=== PATIENT | male | born 1990 | race Caucasian/White ===

== ENCOUNTER 2020-02-06 17:53 | Emergency (ER) | payer OTHER, SELFPAY ==
[2020-02-06 18:05] VITALS: BP 131/87; PULSE 86; RESP 18; TEMP 36.7; O2SAT 97; BMI 29.5
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
== END 2020-02-06 19:08 | disposition home or self-care (01) ==
PROVIDERS: Emergency Provider Emergency Medicine; PCP Family Medicine
DX: F41.9 Anxiety disorder, unspecified (principal); F31.9 Bipolar disorder, unspecified
CPT/HCPCS: 99283

== ENCOUNTER 2021-09-02 17:35 | Emergency (ER) | payer OTHER, SELFPAY ==
[2021-09-02 18:29] VITALS: BP 106/77; PULSE 88; RESP 17; TEMP 37.8; O2SAT 98; BMI 25.1
[2021-09-02 19:07] VITALS: BP 114/72; PULSE 105; RESP 20; O2SAT 98
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
[2021-09-02 19:09] LABS: Glucose, Whole Blood 132 mg/dL (60-115)
[2021-09-02] MEDS: Ondansetron ODT 4 MG TAB.RAPDIS TRANSLINGU (19:15)
[2021-09-02 19:27] LABS: MANUAL DIFF FLAG NO
[2021-09-02 19:28] LABS: Basophils Percent Auto 0.1 % (0-2); Hematocrit 41.5 % (42.0-52.0); Hemoglobin 14.8 g/dl (14.0-18.0); Imm Gran Abs Auto 0.08 X10*3/uL (0.00-0.03); Imm Gran Pct Auto 0.5 % (0.0-0.4); Lymphocytes Percent Auto 6.2 % (20-40); Mean Corpuscular HGB Conc 35.7 g/dl (31.0-36.0); Mean Corpuscular Hemoglobin 30.9 pg (27.0-33.0); Mean Corpuscular Volume 86.6 fL (80.0-98.0); Mean Platelet Volume 10.4 fL (9.4-12.4); Monocytes Absolute Auto 1.1 X10*3/uL (0.1-1.2); Monocytes Percent Auto 6.8 % (2-11); Neutrophils Absolute Auto 13.3 x10*3/uL (2.0-8.3); Neutrophils Percent Auto 86.4 % (45-73); Platelet Count 240 X10*3/uL (160-400); Red Blood Count 4.79 X10*6/uL (4.60-5.80); Red Cell Distribution Width 13.6 % (11.0-16.0); White Blood Count 15.4 X10*3/uL (4.8-10.8)
[2021-09-02 19:48] LABS: Alanine Aminotransferase 14 U/L (0-40); Albumin Level 4.7 g/dL (3.5-5.0); Alkaline Phosphatase 78 U/L (39-117); Anion Gap 16 (12-20); Aspartate Amino Transferase 14 U/L (5-37); Bilirubin Total 0.6 mg/dL (0.0-1.0); Blood Urea Nitrogen 10 mg/dL (9-16); Calcium 9.1 mg/dL (8.4-10.2); Carbon Dioxide 24 mmol/L (22-29); Chloride 103 mmol/L (96-108); Creatinine Clr Calc Pharmacy 101.8; Estimated Glomerular Filt Rate > 60; Glucose Random 138 mg/dL (60-115); Sodium 139 mmol/L (135-145); Total Protein 8.2 g/dL (6.5-8.0)
--- NOTE | 2021-09-02 21:32 | ED.DENTAL ---
HPI - Dental/Oral General Chief complaint: Dental/Oral Stated complaint: tooth pain/R side of face swollen Time Seen by Provider: 09/02/21 21:23 Source: patient Mode of arrival: ambulatory Limitations: no limitations History of Present Illness HPI Narrative: 30-year-old male came in for evaluation of dental pain and gum swelling with facial swelling and tenderness symptoms been going for the past week patient was supposed to see his dentist today but apartment was postponed till tomorrow. Teeth map: 1. Dental decay 2. Gum swelling Related Data Previous Rx's Medication Instructions Recorded amoxicillin 500 mg tablet 500 mg PO Q8H #30 tabs 09/02/21 Allergies Allergy/AdvReac Type Severity Reaction Status Date / Time No Known Allergies Allergy Verified 09/02/21 18:32 Review of Systems Review of Systems: All other systems are reviewed and are negative Constitutional: Reports as per HPI and Reports no additional constitutional complaints Eyes: Reports as per HPI and Reports no additional eye complaints Reports system reviewed and no additional complaints, except as documented Cardiovascular: Reports as per HPI and Reports no additional cardiovascular complaints Respiratory: Reports as per HPI and Reports no additional respiratory complaints Gastrointestinal: Reports as per HPI and Reports no additional gastrointestinal complaints Genitourinary: Reports no additional female genitourinary complaints Musculoskeletal: Reports no additional musculoskeletal complaints Skin/Breast: Reports system reviewed and no additional complaints, except as docu Psychiatric: Reports no additional psychiatric complaints Endocrine: Reports no additional endocrine complaints Hematologic/Lymphatic: Reports no additional hematologic/lymphatic complaints Allergic/Immunologic: Reports no additional allergic/immunologic complaints Reports system reviewed and no additional complaints, except as documented and Reports Abnormal speech present [facility] Social History Social History Advance Directives: No Advance Directives Information Provided: No Physical Exam Vital Signs: Vital Signs: Last Vital Signs Temp 100.1 F 09/02/21 18:29 Pulse 105 H 09/02/21 19:07 Resp 20 09/02/21 19:07 BP 114/72 09/02/21 19:07 Pulse Ox 98 09/02/21 19:07 O2 Del Method 09/02/21 19:07 BMI result Body Mass Index 25.1 Vital signs have been reviewed as appeared to be correct. Blood pressure normal. Heart rate normal. Respiration rate normal. Temperature normal. Oxygen saturation normal. Appearance: Alert. Oriented X3. No acute distress. Head: Normal external exam. Normocephalic. Atraumatic. No Lerner signs noted. No raccoon eyes noted Eyes: PERRLA. EOMI. Conjunctiva and sclera normal. Eyelids normal. Facial/dental: Right facial swelling, widespread dental decay drainable gum abscess next to tooth number 30 and 31. ENT: TM's Normal. Pharynx normal. Uvula midline. Moist mucous membranes. No trismus noted. No drooling noted. No muffled voice noted. Neck: Normal inspection. Neck supple. FROM. No adenopathy. Thyroid Normal. No meningeal signs. No neck mass noted. CVS: Normal heart rate and rhythm. Heart sound normal. No murmurs noted. Pulses normal throughout. Respiratory: No respiratory distress. Painless inspiration. Breath sounds normal. No wheezes/rales/rhonchi noted. Chest nontender. No accessory muscle usage noted or decreased air movement noted. Abdomen: Soft and nontender. Bowel sounds normal in all 4 quadrants. No distention noted. No organomegaly noted. No visible injury noted. Back: No CVA tenderness. Full range of motion noted. Skin: Skin warm and dry. Normal skin color. Normal skin turgor. No rashes/lesions/lacerations noted. Extremities: No lower extremity edema. Extremities exhibit normal range of motion. Extremities nontender. Neuro: Oriented X 3. Cranial nerve exam: II-XII are grossly intact No motor deficit. No sensory deficit. Reflexes normal. Course Course Course Narrative: 30-year-old male with right facial swelling and dental pain with small dental abscess that was I and D in the emergency department patient has an appointment with his dentist tomorrow, patient was given anti-inflammatories/penicillin/pain medication and prescription for amoxicillin and follow up with his dentist tomorrow. MDM - Dental/Oral Lab Data Result diagrams: 09/02/21 19:15 09/02/21 19:15 Labs: Lab Results 09/02/21 09/02/21 09/02/21 Range/Units 19:05 19:15 19:15 WBC 15.4 H (4.8-10.8) X10*3/uL RBC 4.79 (4.60-5.80) X10*6/uL Hgb 14.8 (14.0-18.0) g/dl Hct 41.5 L (42.0-52.0) % MCV 86.6 (80.0-98.0) fL MCH 30.9 (27.0-33.0) pg MCHC 35.7 (31.0-36.0) g/dl RDW 13.6 (11.0-16.0) % Plt Count 240 (160-400) X10*3/uL MPV 10.4 (9.4-12.4) fL Immature Gran % (Auto) 0.5 H (0.0-0.4) % Neut % (Auto) 86.4 H (45-73) % Lymph % (Auto) 6.2 L (20-40) % Pitt % (Auto) 6.8 (2-11) % Eos % (Auto) 0.0 (0-4) % Baso % (Auto) 0.1 (0-2) % Lymph # (Auto) 1.0 L (1.2-4.9) X10*3/uL Pitt # (Auto) 1.1 (0.1-1.2) X10*3/uL Eos # (Auto) 0.0 (0.0-0.4) X10*3/uL Baso # (Auto) 0.0 (0.0-0.2) X10*3/uL Abs Immat Gran (auto) 0.08 H (0.00-0.03) X10*3/uL Absolute Neuts (auto) 13.3 H (2.0-8.3) x10*3/uL Absolute Nucleated RBC 0.000 (0.0-0.012) X10*3/uL Nucleated RBC % (auto) 0.0 (0.0-0.2) /100WBC Sodium 139 (135-145) mmol/L Potassium 4.0 (3.3-5.1) mmol/L Chloride 103 (96-108) mmol/L Carbon Dioxide 24 (22-29) mmol/L Anion Gap 16 (12-20) BUN 10 (9-16) mg/dL Creatinine 1.08 (0.5-1.4) mg/dL Estim Creat Clear Calc 101.8 Estimated GFR > 60 POC Glucose 132 H (60-115) mg/dL Random Glucose 138 H (60-115) mg/dL Calcium 9.1 (8.4-10.2) mg/dL Total Bilirubin 0.6 (0.0-1.0) mg/dL AST 14 (5-37) U/L ALT 14 (0-40) U/L Alkaline Phosphatase 78 (39-117) U/L Total Protein 8.2 H (6.5-8.0) g/dL Albumin 4.7 (3.5-5.0) g/dL Discharge Plan Discharge Clinical Impression: Toothache, Dental caries, Gingival abscess Patient Disposition: Home, Self-Care Instructions: Gingivitis (ED) Additional Instructions: See your dentist as scheduled tomorrow. Prescriptions: New amoxicillin 500 mg tablet 500 mg PO Q8H Qty: 30 0RF
[2021-09-02] MEDS: Ibuprofen 800 MG TABLET PO (21:45)
[2021-09-02] MEDS: oxyCODONE HCl Immed Release 5 MG TABLET PO (21:46)
[2021-09-02] MEDS: Amoxicillin 500 MG CAPSULE PO (21:47)
== END 2021-09-02 22:06 | disposition home or self-care (01) ==
PROVIDERS: Emergency Provider Emergency Medicine
DX: K08.89 Other specified disorders of teeth and supporting structures (principal); K02.9 Dental caries, unspecified; K05.3 Chronic periodontitis
CPT/HCPCS: 36415; 80053; 82947; 85025; 99283

== ENCOUNTER 2022-03-10 13:15 | Emergency (ER) | payer OTHER, SELFPAY ==
--- NOTE | ~2022-03-10 | CT_ITS ---
EXAMINATION: CT SOFT TISSUE NECK WITH CONTRAST CLINICAL INFORMATION: Right facial swelling and pain. COMPARISON: None TECHNIQUE: Following the administration of 100 mL of Omnipaque 300 intravenous contrast, helical imaging was performed in the axial plane with generation of coronal and sagittal reformatted images. This CT examination was performed using dose optimization techniques as appropriate, variously including the following: *Automated exposure control *Adjustment of mA and/or kV according to patient size (this includes techniques or standardized protocols for targeted exams where dose is matched to indication/reason for exam; i.e. extremities or head) *Use of iterative reconstruction technique DLP: 585 mGy-cm FINDINGS: There is extensive periodontal and periapical disease within the maxillary and mandibular dentition. There is a large area of right mandibular alveolar lucency which involves the roots of the right lateral incisor, first and second premolars, and both molars. The lucency involves the buccal cortex in the region of the molars and the lingual cortex and buccal cortex in the more anterior dentition. These features are in keeping with mandibular osteomyelitis with pathologic fracture. There is significant soft tissue thickening and enhancement within the right gingivobuccal and premandibular tissues compatible with phlegmon. A rim-enhancing abscess is seen within the right submental region best seen on series 4 image 48/102 measuring up to 4.1 cm. There is no definite inflammation along the floor of mouth. Inflammatory changes are seen extending into the right submandibular triangle with interfascial fluid and fascial thickening. Enlarged lymph nodes are seen along the bilateral submandibular stations. Additional mildly enlarged lymph nodes are seen on the left at level 3, presumably reactive. The parotid and submandibular glands appear normal. The laryngeal contours appear normal. There is no retropharyngeal fluid collection. The thyroid gland appears normal. There is no consolidation within the upper lungs. The cervical spine is intact without destructive changes. No acute intracranial abnormality is seen. CT/CT soft tissue neck w IV con IMPRESSION: Large area of right mandibular alveolar lucency involving the roots of the right lateral incisor, first and second premolars, and both molars. The lucency involves the buccal cortex in the region of the right first and second premolars, and the lingual cortex and buccal cortex in the more anterior dentition. These features are in keeping with mandibular osteomyelitis with pathologic fracture. Extensive phlegmon is seen within the right gingivobuccal and premandibular tissues. A rim-enhancing abscess is seen within the right submental region measuring up to 4.1 cm. Enlarged lymph nodes are seen along the bilateral submandibular stations and left level 3.
--- NOTE | 2022-03-10 13:43 | ED.DENTAL ---
HPI - Dental/Oral General Stated complaint: dental issues Time Seen by Provider: 03/10/22 13:43 Source: patient Mode of arrival: ambulatory Limitations: no limitations History of Present Illness HPI Narrative: 31 yo male here seeking antibiotic for dental infection. Has plan for follow-up with oral surgeon. no difficulty breathing/swallowing difficulties MD Complaint: tooth pain Related Data Previous Rx's Medication Instructions Recorded amoxicillin 500 mg tablet 500 mg PO Q8H #30 tabs 09/02/21 Allergies Allergy/AdvReac Type Severity Reaction Status Date / Time No Known Allergies Allergy Verified 09/02/21 18:32 Review of Systems Review of Systems: Yes all other systems are reviewed and are negative Constitutional: Constitutional: Reports no additional constitutional complaints, Denies body ache(s), Denies chills, Denies fever(s), Denies headache(s) and Denies weakness Eyes: Eyes: Reports no additional eye complaints and Denies change in vision ENT: Reports system reviewed and no additional complaints, except as documented, Reports dental pain, Denies dizziness, Denies headache(s), Denies nasal congestion, Denies nasal discharge and Denies neck pain Cardiovascular: Cardiovascular: Reports no additional cardiovascular complaints, Denies chest pain, Denies leg edema and Denies dyspnea Respiratory: Respiratory: Reports no additional respiratory complaints, Denies cough and Denies dyspnea Gastrointestinal: Gastrointestinal: Reports no additional gastrointestinal complaints, Denies abdominal pain, Denies diarrhea, Denies nausea and Denies vomiting Genitourinary: Genitourinary: Denies urinary incontinence Musculoskeletal: Musculoskeletal: Reports no additional musculoskeletal complaints, Denies back pain, Denies arthralgias, Denies joint swelling, Denies neck pain, Denies numbness and Denies tingling Integumentary/Breasts: Skin/Breast: Reports system reviewed and no additional complaints, except as docu and Denies rash Neurologic: Reports system reviewed and no additional complaints, except as documented, Denies Abnormal speech present, Denies dizziness, Denies headache(s), Denies numbness, Denies tingling and Denies weakness PMFSH Past Medical History Attestation statement: The following information was validated with the patient. Source: old records reviewed and nursing notes reviewed Physical Exam Const: General: cooperative, healthy appearing, comfortable and no acute distress Orientation/consciousness: patient oriented x3 Limitations: no limitations HEENT: Head: Yes normal to inspection Ears: hearing grossly normal bilaterally General nose exam: Normal external nose present Face and sinus: Yes normal facial exam Mouth: Normal oral and palatal mucosa present Throat: Yes posterior oropharynx normal Eyes: General: appearance normal, both eyes and all related structures Pupils: Equal, round and reactive pupils present Neck: Neck: Yes normal visual inspection Chest: Chest palpation & inspection: normal inspection of the chest Resp: Effort & Inspection: normal respiratory effort Auscultation: clear to auscultation bilaterally Cardio: Rate: regular rate Rhythm: regular rhythm Peripheral pulses: Peripheral pulses 2+ throughout GI: Inspection: Yes normal to inspection Palpation (GI): Soft to palpation and nontender Auscultation: normal bowel sounds Back/Spine/Pelvis: Thoracic/Lumbar Spine: thoracic and lumbar spine normal to inspection Skin: General skin exam: no rashes or lesions noted Neuro: General: patient oriented x3, no focal motor deficits and normal sensation to monofilament Cranial nerves: Yes Equal, round and reactive pupils present Cognition (Neuro): normal cognition Speech: No Abnormal speech present Gait exam (Neuro): Normal gait present Motor exam (neuro): 5/5 motor strength present throughout Extrem: General: Yes normal to inspection Medical Decision Making Medical Decision Making MDM Narrative: 31 yo male here with dental infection. Differential Diagnosis Differential Diagnoses: The differential diagnosis associated with the presentation includes Discharge Plan Discharge Clinical Impression: Dental infection Patient Disposition: Home, Self-Care Instructions: Dental Abscess (ED) Prescriptions: No Action amoxicillin 500 mg tablet 500 mg PO Q8H Qty: 30 0RF
[2022-03-10 13:44] VITALS: BP 123/80; PULSE 90; RESP 18; TEMP 36.9; O2SAT 98; BMI 26.6
--- NOTE | 2022-03-10 13:48 | ED_ITS ---
HPI - General Adult General Chief complaint: Dental/Oral <Daisha Wagner NP - Last Filed: 03/10/22 13:49> Stated complaint: dental issues <Daisha Wagner NP - Last Filed: 03/10/22 13:49> Time Seen by Provider: 03/10/22 13:43 <Daisha Wagner NP - Last Filed: 03/10/22 13:49> History of Present Illness HPI narrative: Patient complains of several weeks of worsening dental infection with pain and swelling now under the mandible, he denies any fever chills, he does have some pain he has no difficulty speaking or swallowing denies any drooling no trouble breathing no trouble swallowing, no chest pain no shortness of breath no skin rash <REJI Ratliff - Last Filed: 03/10/22 18:57> Related Data Home medications: Previous Rx's Medication Instructions Recorded amoxicillin 500 mg tablet 500 mg PO Q8H #30 tabs 09/02/21 clindamycin HCl 300 mg capsule 300 mg PO QID 10 days #40 caps 03/10/22 clindamycin HCl 300 mg capsule 300 mg PO QID 10 days #40 caps 03/10/22 (Cleocin HCl) ibuprofen 600 mg tablet 600 mg PO Q6H PRN pain #20 tabs 03/10/22 ibuprofen 600 mg tablet 600 mg PO Q6H PRN pain #20 tabs 03/10/22 oxycodone 5 mg tablet 5 mg PO Q6H PRN pain #7 tabs 03/10/22 oxycodone 5 mg tablet 5 mg PO Q6H PRN pain #7 tabs 03/10/22 <Daisha Wagner NP - Last Filed: 03/10/22 13:49> Allergies/adverse reactions: Allergies Allergy/AdvReac Type Severity Reaction Status Date / Time No Known Allergies Allergy Verified 09/02/21 18:32 <Daisha Wagner NP - Last Filed: 03/10/22 13:49> [facility] Past Medical History [facility] Narrative: Patient has a history of a mood disorder <REJI Ratliff - Last Filed: 03/10/22 18:57> Social History Social History: Social History Advance Directives: No <Daisha Wagner NP - Last Filed: 03/10/22 13:49> Physical Exam ED Vital Signs: Vital Signs - 24 hr 03/10/22 13:44 03/10/22 17:57 Temperature 98.5 F 98.3 F Pulse Rate 90 68 Respiratory Rate 18 16 Blood Pressure 123/80 111/63 Pulse Oximetry 98 99 Oxygen Delivery Method Room Air Room Air BMI result Body Mass Index 26.6 <Daisha Wagner NP - Last Filed: 03/10/22 13:49> Vital Signs - 24 hr 03/10/22 13:44 03/10/22 17:57 Temperature 98.5 F 98.3 F Pulse Rate 90 68 Respiratory Rate 18 16 Blood Pressure 123/80 111/63 Pulse Oximetry 98 99 Oxygen Delivery Method Room Air Room Air BMI result Body Mass Index 26.6 <REJI Ratliff - Last Filed: 03/10/22 18:57> General appearance is no acute distress, speaking full sentences breathing easily no evidence of any respiratory distress The oral exam there is poor dentition, there is tenderness over a right lower molar that is very decayed there was no obvious fluctuant abscess on the gum line in the mouth, there is no trismus there is no drooling, there is no swelling under the tongue, there is no elevation of the tongue, there is no tenderness on the floor of the mouth, voice is normal The facial exam in the submandibular area there is an area of redness induration and tenderness, but no obvious fluctuant superficial abscess The neck exam there is no stridor the neck is supple, swelling is now limited to the submandibular area The pharynx is clear without redness swelling or exudate Respiratory no distress Chest clear to auscultation bilateral Extremities full range of motion x4 <REJI Ratliff - Last Filed: 03/10/22 18:57> Course Course Course Narrative: This is a rapid medical exam. Defer additional HPI, ROS, PE to primary provider. 31 yo male with history of mood disorder here with right lower dental pain/infection. Patient with some swelling, concern for abscess. Tolerating secretions. Will likely need advanced imaging. Will obtain labs. VSS <Daisha Wagner NP - Last Filed: 03/10/22 13:49> This is a rapid medical exam. Defer additional HPI, ROS, PE to primary provider. 31 yo male with history of mood disorder here with right lower dental pain/infection. Patient with some swelling, concern for abscess. Tolerating se cretions. Will likely need advanced imaging. Will obtain labs. 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, and extensive phlegmon is seen in right gingivalbuccal and pre mandibular tissue A rim enhancing abscess is seen within right subsegmental region measuring 4.1 cm, large lymph nodes are seen This case was discussed with attending physician David who agreed this patient should be transferred to a place with ENT or maxillofacial coverage for possible surgical treatment and be started on IV antibiotics When I explained to the patient that we need to transfer him and start IV antibiotics he became very agitated saying his mother in this hospital he would never be admitted to this hospital and he was adamant about not staying For of brief period of time he was yelling and angry but then he calmed down and did understand when I explained the serious of the situation, but he still refus ed admission or transfer He agreed to start oral antibiotics and says that he would think of returning to the hospital tomorrow It was made very clear that he could return to [place] or go wherever he wants and understood that he probably needs IV antibiotics and possibly surgery from a specialist and he also understands that if the abscess and infection grows it could impede his airway make breathing, sepsis, and cause disability or He did leave the hospital but he was alert and oriented he understood the severity of his infection and he was not suicidal and understood risks of leavi ng and benefits of admission but he refused hospital treatment <REJI Ratliff - Last Filed: 03/10/22 18:57> Medications Administered Discontinued Medications Generic Name Dose Route Start Last Admin Trade Name Freq PRN Reason Stop Dose Admin Clindamycin Phosphate 600 mg in 50 mls @ 100 mls/hr 03/10/22 14:29 03/10/22 16:01 Cleocin IV 03/10/22 14:58 Infused ONCE ONE Infusion Iohexol 100 ml 03/10/22 15:53 03/10/22 15:53 Iohexol 350 Mg/Ml 100 Ml Infus..Btl IV 03/10/22 15:54 60 ml ONCE ONE Administration Ketorolac Tromethamine 15 mg 03/10/22 14:29 03/10/22 14:47 Ketorolac Tromethamine 15 Mg/Ml Vial IVPUSH 03/10/22 14:30 15 mg ONCE ONE Administration <Daisha Wagner NP - Last Filed: 03/10/22 13:49> Medications Administered Discontinued Medications Generic Name Dose Route Start Last Admin Trade Name Liliana PRN Reason Stop Dose Admin Clindamycin Phosphate 600 mg in 50 mls @ 100 mls/hr 03/10/22 14:29 03/10/22 16:01 Cleocin IV 03/10/22 14:58 Infused ONCE ONE Infusion Iohexol 100 ml 03/10/22 15:53 03/10/22 15:53 Iohexol 350 Mg/Ml 100 Ml Infus..Btl IV 03/10/22 15:54 60 ml ONCE ONE Administration Ketorolac Tromethamine 15 mg 03/10/22 14:29 03/10/22 14:47 Ketorolac Tromethamine 15 Mg/Ml Vial IVPUSH 03/10/22 14:30 15 mg ONCE ONE Administration <REJI Ratliff - Last Filed: 03/10/22 18:57> Medical Decision Making Lab Data Result Diagrams: 03/10/22 14:41 03/10/22 14:41 <Daisha Wagner NP - Last Filed: 03/10/22 13:49> Labs: Lab Results 03/10/22 03/10/22 03/10/22 Range/Units 14:41 14:41 14:41 WBC 9.8 (4.8-10.8) X10*3/uL RBC 4.62 (4.60-5.80) X10*6/uL Hgb 13.9 L (14.0-18.0) g/dl Hct 40.5 L (42.0-52.0) % MCV 87.7 (80.0-98.0) fL MCH 30.1 (27.0-33.0) pg MCHC 34.3 (31.0-36.0) g/dl RDW 13.2 (11.0-16.0) % Plt Count 308 D (160-400) X10*3/uL MPV 9.2 L (9.4-12.4) fL Immature Gran % (Auto) 0.3 (0.0-0.4) % Neut % (Auto) 74.9 H (45-73) % Lymph % (Auto) 15.0 L (20-40) % [place] % (Auto) 8.3 (2-11) % Eos % (Auto) 1.1 (0-4) % Baso % (Auto) 0.4 (0-2) % Lymph # (Auto) 1.5 (1.2-4.9) X10*3/uL [place] # (Auto) 0.8 (0.1-1.2) X10*3/uL Eos # (Auto) 0.1 (0.0-0.4) X10*3/uL Baso # (Auto) 0.0 (0.0-0.2) X10*3/uL Abs Immat Gran (auto) 0.03 (0.00-0.03) X10*3/uL Absolute Neuts (auto) 7.3 (2.0-8.3) x10*3/uL Absolute Nucleated RBC 0.000 (0.0-0.012) X10*3/uL Nucleated RBC % (auto) 0.0 (0.0-0.2) /100WBC Sodium 138 (135-145) mmol/L Potassium 4.7 (3.3-5.1) mmol/L Chloride 101 (96-108) mmol/L Carbon Dioxide 28 (22-29) mmol/L Anion Gap 14 (12-20) BUN 14 (9-16) mg/dL Creatinine 0.98 (0.5-1.4) mg/dL Estim Creat Clear Calc 111.2 Estimated GFR > 60 Random Glucose 85 (60-115) mg/dL Lactic Acid 0.7 (0.5-2.0) mmol/L Calcium 9.8 D (8.4-10.2) mg/dL <Daisha Wagner, DATASTAGE DEVELOPER - Last Filed: 03/10/22 13:49> Lab Results 03/10/22 03/10/22 03/10/22 Range/Units 14:41 14:41 14:41 WBC 9.8 (4.8-10.8) X10*3/uL RBC 4.62 (4.60-5.80) X10*6/uL Hgb 13.9 L (14.0-18.0) g/dl Hct 40.5 L (42.0-52.0) % MCV 87.7 (80.0-98.0) fL MCH 30.1 (27.0-33.0) pg MCHC 34.3 (31.0-36.0) g/dl RDW 13.2 (11.0-16.0) % Plt Count 308 D (160-400) X10*3/uL MPV 9.2 L (9.4-12.4) fL Immature Gran % (Auto) 0.3 (0.0-0.4) % Neut % (Auto) 74.9 H (45-73) % Lymph % (Auto) 15.0 L (20-40) % [place] % (Auto) 8.3 (2-11) % Eos % (Auto) 1.1 (0-4) % Baso % (Auto) 0.4 (0-2) % Lymph # (Auto) 1.5 (1.2-4.9) X10*3/uL [place] # (Auto) 0.8 (0.1-1.2) X10*3/uL Eos # (Auto) 0.1 (0.0-0.4) X10*3/uL Baso # (Auto) 0.0 (0.0-0.2) X10*3/uL Abs Immat Gran (auto) 0.03 (0.00-0.03) X10*3/uL Absolute Neuts (auto) 7.3 (2.0-8.3) x10*3/uL Absolute Nucleated RBC 0.000 (0.0-0.012) X10*3/uL Nucleated RBC % (auto) 0.0 (0.0-0.2) /100WBC Sodium 138 (135-145) mmol/L Potassium 4.7 (3.3-5.1) mmol/L Chloride 101 (96-108) mmol/L Carbon Dioxide 28 (22-29) mmol/L Anion Gap 14 (12-20) BUN 14 (9-16) mg/dL Creatinine 0.98 (0.5-1.4) mg/dL Estim Creat Clear Calc 111.2 Estimated GFR > 60 Random Glucose 85 (60-115) mg/dL Lactic Acid 0.7 (0.5-2.0) mmol/L Calcium 9.8 D (8.4-10.2) mg/dL <REJI Ratliff - Last Filed: 03/10/22 18:57> Discharge Plan Discharge Clinical Impression: Dental infection, Submandibular abscess, Osteomyelitis <Daisha Wagner NP - Last Filed: 03/10/22 13:49> Patient Disposition: Left Against Medical Advice <Daisha Wagner NP - Last Filed: 03/10/22 13:49> Instructions: Dental Abscess (ED) <Daisha Wagner NP - Last Filed: 03/10/22 13:49> Additional Instructions: You have a dangerous potentially life-threatening infection in your neck which if it progresses can make it difficult breathe and can make you deathly ill You did not want to stay in the hospital but the door is always open we want you to come back so that you could be transferred to a facility within maxillofacial surgeon and to get IV antibiotics to cure your infection I prescribed pills which are no where near is good as IV antibiotics and surgical evaluation Return any time for difficulty breathing fever spreading infection any worse condition or any concerns <Daisha Wagner NP - Last Filed: 03/10/22 13:49> Prescriptions: New clindamycin HCl 300 mg capsule 300 mg PO QID 10 Days Qty: 40 0RF oxycodone 5 mg tablet 5 mg PO Q6H PRN (Reason: pain) Qty: 7 0RF Rx Instructions: Partial Fill upon patient request. ibuprofen 600 mg tablet 600 mg PO Q6H PRN (Reason: pain) Qty: 20 0RF clindamycin HCl [Cleocin HCl] 300 mg capsule 300 mg PO QID 10 Days Qty: 40 0RF ibuprofen 600 mg tablet 600 mg PO Q6H PRN (Reason: pain) Qty: 20 0RF oxycodone 5 mg tablet 5 mg PO Q6H PRN (Reason: pain) Qty: 7 0RF Rx Instructions: Partial Fill upon patient request. No Action amoxicillin 500 mg tablet 500 mg PO Q8H Qty: 30 0RF <Daisha Wagner NP - Last Filed: 03/10/22 13:49> Stand Alone Forms: Against Medical Advice <Daisha Wagner NP - Last Filed: 03/10/22 13:49>
[2022-03-10 14:46] LABS: MANUAL DIFF FLAG NO
[2022-03-10] MEDS: Clindamycin Phosphate/D5W 600 MG/50 ML PIGGYBACK 100 MG IV (14:47)
[2022-03-10] MEDS: Ketorolac Tromethamine 15 MG/ML VIAL IVPUSH (14:47)
[2022-03-10 14:48] LABS: Basophils Percent Auto 0.4 % (0-2); Eosinophils Absolute Auto 0.1 X10*3/uL (0.0-0.4); Eosinophils Percent Auto 1.1 % (0-4); Hematocrit 40.5 % (42.0-52.0); Hemoglobin 13.9 g/dl (14.0-18.0); Imm Gran Abs Auto 0.03 X10*3/uL (0.00-0.03); Imm Gran Pct Auto 0.3 % (0.0-0.4); Lymphocytes Absolute Auto 1.5 X10*3/uL (1.2-4.9); Mean Corpuscular HGB Conc 34.3 g/dl (31.0-36.0); Mean Corpuscular Hemoglobin 30.1 pg (27.0-33.0); Mean Corpuscular Volume 87.7 fL (80.0-98.0); Mean Platelet Volume 9.2 fL (9.4-12.4); Monocytes Absolute Auto 0.8 X10*3/uL (0.1-1.2); Monocytes Percent Auto 8.3 % (2-11); Neutrophils Absolute Auto 7.3 x10*3/uL (2.0-8.3); Neutrophils Percent Auto 74.9 % (45-73); Platelet Count 308 X10*3/uL (160-400); Red Blood Count 4.62 X10*6/uL (4.60-5.80); Red Cell Distribution Width 13.2 % (11.0-16.0); White Blood Count 9.8 X10*3/uL (4.8-10.8)
[2022-03-10 15:00] LABS: Lactic Acid 0.7 mmol/L (0.5-2.0)
[2022-03-10 15:06] LABS: Anion Gap 14 (12-20); Blood Urea Nitrogen 14 mg/dL (9-16); Calcium 9.8 mg/dL (8.4-10.2); Carbon Dioxide 28 mmol/L (22-29); Chloride 101 mmol/L (96-108); Creatinine Clr Calc Pharmacy 111.2; Estimated Glomerular Filt Rate > 60; Glucose Random 85 mg/dL (60-115); Potassium 4.7 mmol/L (3.3-5.1); Sodium 138 mmol/L (135-145)
[2022-03-10] MEDS: iohexoL 350 MG/ML 100 ML INFUS..BTL IV (15:53)
[2022-03-10 17:57] VITALS: BP 111/63; PULSE 68; RESP 16; TEMP 36.8; O2SAT 99
--- NOTE | 2022-03-10 18:28 | PC.NURSE ---
overheard yelling while pt was talking with provider. pt was increasingly angry, unable to determine cause. pt stating Amanda been here all day I just want to get the fuck out of here my schizophrenia is getting bad. My mother in this hospital. At this time security was outside the room as a standby. pt stated get security the fuck out of here I'm paranoid as fuck. I'll take a gun and shoot these mother fuckers . Pt did not want to stay in the hospital for his infection. was d/c per his request. risks of not staying in the hospital were explained to the pt.
== END 2022-03-10 18:41 | disposition left against medical advice (07) ==
PROVIDERS: Nurse Practitioner Family; Emergency Provider Student in an Organized Health Care Education/Training Program
DX: R22.1 Localized swelling, mass and lump, neck (principal); M86.10 Other acute osteomyelitis, unspecified site; K12.2 Cellulitis and abscess of mouth; Z79.899 Other long term (current) drug therapy
CPT/HCPCS: 36415; 70491; 80048; 83605; 85025; 87040; 96365; 96375; 99284; J1885; Q9967

== ENCOUNTER 2022-11-25 23:03 | Emergency (ER) | payer OTHER, SELFPAY ==
--- NOTE | ~2022-11-25 | CT_ITS ---
EXAMINATION: NONCONTRAST HEAD CT NONCONTRAST CERVICAL SPINE CT INDICATION INFORMATION: Fall. Posterior scalp pain. COMPARISON: 09/08/2016 and 07/10/2018 TECHNIQUE: Separate noncontrast CT examinations of the head and cervical spine were performed. Coronal and sagittal images were created for each examination at the technologist workstation. This CT examination was performed using dose optimization techniques as appropriate, variously including the following: *Automated exposure control *Adjustment of mA and/or kV according to patient size (this includes techniques or standardized protocols for targeted exams where dose is matched to indication/reason for exam; i.e. extremities or head) *Use of iterative reconstruction technique DLP: 1320 mGy-cm FINDINGS: Head: There is no evidence of acute intracranial hemorrhage or territorial infarction. No abnormal mass effect or midline shift is seen. Meneses to white matter differentiation is well preserved. No extra-axial fluid collections are identified. No hydrocephalus. No significant volume loss. There is no abnormal attenuation within the brain parenchyma. No acute osseous or soft tissue abnormality. The mastoid air cells and visualized portions of the paranasal sinuses are well aerated. Cervical spine: There is anatomic alignment of the vertebral bodies and posterior elements. The atlantoaxial and atlantooccipital articulations are intact. Vertebral body heights and intervertebral disc spaces are maintained. No evidence of acute fracture. No prevertebral soft tissue swelling. Visualized portions of the lung apices are unremarkable. The thyroid gland is unremarkable. CT/CT head/brain wo IV con IMPRESSION: * No acute intracranial bleed or territorial infarction. * No acute fractures of the calvarium or cervical spine.
--- NOTE | ~2022-11-25 | CT_ITS ---
EXAMINATION: NONCONTRAST HEAD CT NONCONTRAST CERVICAL SPINE CT INDICATION INFORMATION: Fall. Posterior scalp pain. COMPARISON: 09/08/2016 and 07/10/2018 TECHNIQUE: Separate noncontrast CT examinations of the head and cervical spine were performed. Coronal and sagittal images were created for each examination at the technologist workstation. This CT examination was performed using dose optimization techniques as appropriate, variously including the following: *Automated exposure control *Adjustment of mA and/or kV according to patient size (this includes techniques or standardized protocols for targeted exams where dose is matched to indication/reason for exam; i.e. extremities or head) *Use of iterative reconstruction technique DLP: 1320 mGy-cm FINDINGS: Head: There is no evidence of acute intracranial hemorrhage or territorial infarction. No abnormal mass effect or midline shift is seen. Meneses to white matter differentiation is well preserved. No extra-axial fluid collections are identified. No hydrocephalus. No significant volume loss. There is no abnormal attenuation within the brain parenchyma. No acute osseous or soft tissue abnormality. The mastoid air cells and visualized portions of the paranasal sinuses are well aerated. Cervical spine: There is anatomic alignment of the vertebral bodies and posterior elements. The atlantoaxial and atlantooccipital articulations are intact. Vertebral body heights and intervertebral disc spaces are maintained. No evidence of acute fracture. No prevertebral soft tissue swelling. Visualized portions of the lung apices are unremarkable. The thyroid gland is unremarkable. CT/CT cervical spine wo IV con IMPRESSION: * No acute intracranial bleed or territorial infarction. * No acute fractures of the calvarium or cervical spine.
[2022-11-25 23:07] VITALS: BP 122/74; PULSE 77; O2SAT 98
[2022-11-25 23:19] VITALS: BP 105/61; PULSE 63; RESP 16; TEMP 36.9; O2SAT 97; BMI 28.0
--- NOTE | 2022-11-25 23:26 | PC.NURSE ---
Dr. Jones at bedside for primary eval. c-collar removed by
--- NOTE | 2022-11-25 23:28 | ED.FALL ---
HPI - Fall General Chief Complaint: Fall Stated Complaint: dizzy,nausea,headache Time Seen by Provider: 11/25/22 23:15 Source: patient Mode of arrival: EMS Limitations: no limitations History of Present Illness HPI Narrative: 31-year-old male who presents emergency department for evaluation of a syncopal episode. The patient states he has chronic neck and back pain as well as insomnia. He states that he took his gabapentin and duloxetine. He then drink orange juice and a whole bottle of vodka. He states that he was feeling hot knee got up to go to his bedroom, he then passed out. He states he fell backwards struck his head. He believes that he did lose consciousness. He states since the fall he has been feeling sick with nausea but no vomiting. He he states that he got hot, sweaty, got up to walk to his room and then passed out. Nursing notes state that the fall was witnessed By a friend. Patient got up, struck his head on the wall then fell to the floor. He had a 2nd loss of consciousness.He denied being ill prior to his syncopal episode. He denied fever, chills, cough, chest pain, shortness of breath, changes bowel movements, frequency, urgency or dysuria. He complained of a headache which is 10/10 and complained that he was having pain on the back of his head from the fall. Patient states he does not drink on a regular basis, he states that he does binge drink every 1-2 months. He denies being suicidal or homicidal he states he was drinking just to have a good time. Related Data Previous Rx's Medication Instructions Recorded amoxicillin 500 mg tablet 500 mg PO Q8H #30 tabs 09/02/21 clindamycin HCl 300 mg capsule 300 mg PO QID 10 days #40 caps 03/10/22 clindamycin HCl 300 mg capsule 300 mg PO QID 10 days #40 caps 03/10/22 (Cleocin HCl) ibuprofen 600 mg tablet 600 mg PO Q6H PRN pain #20 tabs 03/10/22 ibuprofen 600 mg tablet 600 mg PO Q6H PRN pain #20 tabs 03/10/22 oxycodone 5 mg tablet 5 mg PO Q6H PRN pain #7 tabs 03/10/22 oxycodone 5 mg tablet 5 mg PO Q6H PRN pain #7 tabs 03/10/22 Allergies Allergy/AdvReac Type Severity Reaction Status Date / Time No Known Allergies Allergy Verified 11/25/22 23:25 Review of Systems Review of Systems: Yes all other systems are reviewed and are negative [facility] Past Medical History [facility] Narrative: Past medical history: Insomnia, chronic pain secondary to neck and back issues, depression, anxiety. Social history: He smokes 1 pack of cigarettes per day times 10 years. He smokes marijuana he states he did smoke 1 marijuana blunt this evening he admits to drinking a large bottle of vodka. He denied other drug use. Social History Social History Alcohol intake: current Alcohol intake frequency: holidays/special occasions only Alcohol type: hard liquor Smoked in Last 30 Days: Yes Use of substances other than those prescribed or required for medical reasons: Yes Substance Use Type: Marijuana Advance Directives: No Advance Directives Information Provided: No Physical Exam Vital Signs: Vital Signs: Last Vital Signs Temp 98.5 F 11/25/22 23:19 Pulse 81 11/26/22 02:17 Resp 15 11/26/22 01:51 BP 99/58 L 11/26/22 03:34 Pulse Ox 97 11/26/22 01:51 O2 Del Method Room Air 11/26/22 01:51 BMI result Body Mass Index 28.0 Vital signs were normal exam: General: Awake, alert in no distress Head: Normocephalic, Patient has tenderness palpation of the right a septal area, there is no large hematoma or abrasion noted EENT: PERRL, Lids normal, sclera normal, conjunctiva normal, nose normal , ears normal, throat without erythema or exudates Neck: Supple, no adenopathy, trachea midline , no cervical spine tenderness Lung: breath sounds symmetric, no wheezing, rales or rhonchi Chest: symmetric movement, nontender Heart: regular rate and rhythm, normal S1, S2 no murmurs or rubs Abdomen: soft, non-tender, nondistended, normal bowel sounds Back: no vertebral tenderness, no CVAT Extremities: no deformities, moves all extremities symmetrically Skin: no rashes, no lesion, normal color and warmth Neuro: Awake, alert, oriented, normal speech, cranial nerves intact, moves all extremities symmetrically Psych: Pleasant, cooperative Medications Administered Discontinued Medications Generic Name Dose Route Start Last Admin Trade Name Liliana PRN Reason Stop Dose Admin Diphenhydramine HCl 50 mg 11/25/22 23:28 11/26/22 00:03 Diphenhydramine Hcl 50 Mg/Ml Vial IVPUSH 11/25/22 23:29 50 mg ONCE STA Administration Sodium Chloride 1,000 mls @ 999 mls/hr 11/25/22 23:28 11/26/22 00:55 Ns IV 11/26/22 00:28 Infused .Q1H1M STA Infusion Sodium Chloride 1,000 mls @ 999 mls/hr 11/26/22 01:43 11/26/22 03:20 Ns IV 11/26/22 02:43 Infused .Q1H1M STA Infusion Metoclopramide HCl 10 mg 11/25/22 23:28 11/26/22 00:03 Metoclopramide Hcl 10 Mg/2 Ml Vial IVPUSH 11/25/22 23:29 10 mg ONCE STA Administration Medical Decision Making Medical Decision Making MDM Narrative: 31-year-old male who presents emergency department for evaluation of syncopal episode that occurred prior to coming to the emergency department. Patient took his nighttime medications which include gabapentin and duloxetine. He then drink a large bottle of vodka with orange juice and smoked a marijuana blunt cigarette. he states he felt very hot and warm, got up to walk to his room and had a witnessed fall. He struck his head on the wall and then on the floor. He had a 2nd loss of consciousness. Exam did reveal tenderness with palpation of the right a simple area of his head otherwise was unremarkable. The following evaluation was ordered: CT scan of the head, CT scan of the brain without IV contrast, CBC, CMP, lipase, ethanol level, PT/INR, PTT, EKG, troponin. Patient was treated with normal saline IV x1 L, Reglan and 10 mg IV and Benadryl 50 mg IV to treat his headache and his nausea and vomiting 04:22 Patient's laboratory evaluation was unremarkable. Patient's alcohol level was below detectable limits. Twelve EKG was unremarkable CT scan of the head and cervical spine did not reveal any acute fractures or bleeding which is reassuring. the patient will be discharged home with printed instructions on head injury, he is advised to take Tylenol for his pain and to follow-up with his PCP for further evaluation. Differential Diagnosis Differential Diagnoses: The differential diagnosis associated with the presentation includes Differential diagnosis includes was not limited to acute alcohol intoxication, electrolyte abnormality, cardiac arrhythmia, myocardial infarction, myocardial ischemia, skull fracture, intracranial bleed Admission/Observation Consideration of admission/observation: Escalation of care including admission/observation considered Lab Data MDM Lab Attestation statement: I reviewed the patient's lab results. My interpretation patient's laboratory evaluation is as follows: Elevated WBC 63016, anemia with an H&H of 12.8 and 36.9- normal MCV. Coags were normal. CMP was normal. High sensitive troponin I was below detectable limits. Alcohol was below detectable limits. 11/25/22 23:38 11/25/22 23:38 Labs: Lab Results 11/25/22 Range/Units 23:38 WBC 11.7 H (4.8-10.8) X10*3/uL RBC 4.28 L (4.60-5.80) X10*6/uL Hgb 12.8 L (14.0-18.0) g/dl Hct 36.9 L (42.0-52.0) % MCV 86.2 (80.0-98.0) fL MCH 29.9 (27.0-33.0) pg MCHC 34.7 (31.0-36.0) g/dl RDW 14.9 (11.0-16.0) % Plt Count 390 D (160-400) X10*3/uL MPV 9.0 L (9.4-12.4) fL Immature Gran % (Auto) 0.3 (0.0-0.4) % Neut % (Auto) 68.8 (45-73) % Lymph % (Auto) 22.2 (20-40) % [place] % (Auto) 6.1 (2-11) % Eos % (Auto) 2.3 (0-4) % Baso % (Auto) 0.3 (0-2) % Lymph # (Auto) 2.6 (1.2-4.9) X10*3/uL [place] # (Auto) 0.7 (0.1-1.2) X10*3/uL Eos # (Auto) 0.3 (0.0-0.4) X10*3/uL Baso # (Auto) 0.0 (0.0-0.2) X10*3/uL Abs Immat Gran (auto) 0.03 (0.00-0.03) X10*3/uL Absolute Neuts (auto) 8.0 (2.0-8.3) x10*3/uL Absolute Nucleated RBC 0.000 (0.0-0.012) X10*3/uL Nucleated RBC % (auto) 0.0 (0.0-0.2) /100WBC PT 10.6 L (11.1-13.3) SEC INR 0.9 (0.9-1.1) APTT 26.3 (26.0-36.4) SEC Sodium 139 (135-145) mmol/L Potassium 4.1 (3.3-5.1) mmol/L Chloride 99 (96-108) mmol/L Carbon Dioxide 29 (22-29) mmol/L Anion Gap 15 (12-20) BUN 8 L (9-16) mg/dL Creatinine 0.87 (0.5-1.4) mg/dL Estim Creat Clear Calc 136.1 Estimated GFR > 60 Random Glucose 92 (60-115) mg/dL Calcium 9.4 (8.4-10.2) mg/dL Total Bilirubin 0.1 (0.0-1.0) mg/dL AST 18 (5-37) U/L ALT 20 (0-40) U/L Alkaline Phosphatase 74 (39-117) U/L Troponin I High Sens < 2.7 (<3.5-35.0) ng/L Total Protein 7.4 (6.5-8.0) g/dL Albumin 4.0 (3.5-5.0) g/dL Lipase 53 (8-78) U/L Ethyl Alcohol < 10 mg/dL Independent Interpretation I performed an independent interpretation of an: EKG Interpretation: my independent interpretation patient's 12 EKG done and 23:35 hours is as follows: Normal sinus rhythm rate of 60, normal WA interval, QRS duration QTC interval, no ST segment elevation, no ST segment depression, no PACs, no PVCs. This is a normal EKG. Radiology Impression Discussion of test interpretation with radiology: I have reviewed the radiologist's reading. Radiologist Impression: CT head/brain wo IV con IMPRESSION: * No acute intracranial bleed or territorial infarction. * No acute fractures of the calvarium or cervical spine. Dictated By: Dagoberto Vincent MD CT cervical spine wo IV con IMPRESSION: * No acute intracranial bleed or territorial infarction. * No acute fractures of the calvarium or cervical spine. Dictated By: Dagoberto Vincent MD Discharge Plan Discharge Clinical Impression: Syncope Qualifiers: Encounter type: initial encounter Closed head injury Qualifiers: Encounter type: initial encounter Qualified Code(s): S09.90XA - Unspecified injury of head, initial encounter Patient Disposition: Home, Self-Care Instructions: Head Injury (ED), Syncope (ED) Additional Instructions: Your blood work was unremarkable. The CT scan of your head and neck did not reveal any broken bones or bleeding in the brain which is reassuring. Your EKG was normal. At this time I do not have a clear cause for why you passed out but I think it is okay to send you home. Take Tylenol (acetaminophen) 500 mg pills, 2 pills every 6 hours as needed for pain or fever. Follow-up with your doctor in 2 days. Please return to the emergency department if your symptoms get worse or if you develop any symptoms that are concerning to you. Prescriptions: No Action clindamycin HCl 300 mg capsule 300 mg PO QID 10 Days Qty: 40 0RF oxycodone 5 mg tablet 5 mg PO Q6H PRN (Reason: pain) Qty: 7 0RF Rx Instructions: Partial Fill upon patient request. ibuprofen 600 mg tablet 600 mg PO Q6H PRN (Reason: pain) Qty: 20 0RF clindamycin HCl [Cleocin HCl] 300 mg capsule 300 mg PO QID 10 Days Qty: 40 0RF ibuprofen 600 mg tablet 600 mg PO Q6H PRN (Reason: pain) Qty: 20 0RF oxycodone 5 mg tablet 5 mg PO Q6H PRN (Reason: pain) Qty: 7 0RF Rx Instructions: Partial Fill upon patient request. amoxicillin 500 mg tablet 500 mg PO Q8H Qty: 30 0RF
--- NOTE | 2022-11-25 23:30 | ECG_ITS ---
Test Reason : FALL Blood Pressure : / mmHG Vent. Rate : 060 BPM Atrial Rate : 060 BPM P-R Int : 156 ms QRS Dur : 090 ms QT Int : 402 ms P-R-T Axes : 049 044 041 degrees QTc Int : 402 ms Normal sinus rhythm Normal ECG When compared with ECG of 13-JUN-2017 22:38, Vent. rate has decreased BY 32 BPM Referred By: Ger Jones Electronically Signed By:TARAS PAIZ MD
--- NOTE | 2022-11-25 23:41 | PC.NURSE ---
iv established labs drawn ekg obtained. nsr on monitor 98 bpm.
[2022-11-25 23:42] LABS: MANUAL DIFF FLAG NO
[2022-11-25 23:43] LABS: Basophils Percent Auto 0.3 % (0-2); Eosinophils Absolute Auto 0.3 X10*3/uL (0.0-0.4); Eosinophils Percent Auto 2.3 % (0-4); Hematocrit 36.9 % (42.0-52.0); Hemoglobin 12.8 g/dl (14.0-18.0); Imm Gran Abs Auto 0.03 X10*3/uL (0.00-0.03); Imm Gran Pct Auto 0.3 % (0.0-0.4); Lymphocytes Absolute Auto 2.6 X10*3/uL (1.2-4.9); Lymphocytes Percent Auto 22.2 % (20-40); Mean Corpuscular HGB Conc 34.7 g/dl (31.0-36.0); Mean Corpuscular Hemoglobin 29.9 pg (27.0-33.0); Mean Corpuscular Volume 86.2 fL (80.0-98.0); Monocytes Absolute Auto 0.7 X10*3/uL (0.1-1.2); Monocytes Percent Auto 6.1 % (2-11); Neutrophils Percent Auto 68.8 % (45-73); Platelet Count 390 X10*3/uL (160-400); Red Blood Count 4.28 X10*6/uL (4.60-5.80); Red Cell Distribution Width 14.9 % (11.0-16.0); White Blood Count 11.7 X10*3/uL (4.8-10.8)
[2022-11-25] MEDS: 0.9 % Sodium Chloride 1,000 ML 999 ML IV (23:45)
[2022-11-25 23:49] LABS: INTERNATIONAL NORM RATIO 0.9 (0.9-1.1); Prothrombin Time 10.6 SEC (11.1-13.3)
[2022-11-25 23:52] LABS: Partial Thromboplastin Time 26.3 SEC (26.0-36.4)
--- OUTSIDE RECORDS SUMMARY | 2022-11-25 23:55 | XMS_ITS | Continuity of Care Document ---
Author Name Unknown Organization [facility] ter Address [address] [place] [id number]- Care Team Providers Care Computer Support Analyst Name Role Phone Daniel ARRIETA, nIo Emmanuel Primary Care Physician Encounter [facility] Date(s): 03/14/22 - 04/13/[address] [address] Attending Physician: Not on Staff, Attending MD Admitting Physician: Not on Staff, Admitting MD Referring Physician: Not on Staff, Referring MD Allergies, Adverse Reactions, Alerts No Known Allergies Immunizations Not Given Vaccine Date Status Refusal Reason influenza virus vaccine, inactivated 03/13/22 Not Given Patient Refuses Medications Augmentin 875 mg-125 mg oral tablet 1 tablet, By Mouth, Every 12 hours, for 42 days, # 84 tablet, 0 Refills, Acute 04/25/22 16:12:00 EDT, 03/14/22 16:12:00 EST, Tablet, [facility]/pharmacy #[id number], Partial fill upon patient request if the prescription is for a schedule II opioid drug., 175, cm,... Start Date: 03/14/22 Stop Date: 04/25/22 Status: Ordered duloxetine 60 mg oral enteric coated capsule 1 capsule = 60 mg, By Mouth, Daily, # 30 capsule, 0 Refills, Maintenance, 03/11/22 21:36:00 EST, ECCapsule, Partial fill upon patient request if the prescription is for a schedule II opioid drug. Start Date: 03/11/22 Status: Ordered gabapentin 400 mg oral capsule Refills 0, Maintenance, 03/11/22 21:34:00 EST, Partial fill upon patient request if the prescription is for a schedule II opioid drug. Start Date: 03/11/22 Status: Ordered gabapentin 600 mg oral tablet 0 Refills, Maintenance, 03/11/22 21:34:00 EST, Partial fill upon patient request if the prescription is for a schedule II opioid drug. Start Date: 03/11/22 Status: Ordered hydrOXYzine hydrochloride 50 mg oral tablet 1 tablet = 50 mg, By Mouth, 3 times a day, PRN for anxiety, # 40 tablet, 0 Refills, Maintenance, 03/11/22 21:35:00 EST, Tablet, Partial fill upon patient request if the prescription is for a scheduleII opioid drug. Start Date: 03/11/22 Status: Ordered risperiDONE 1 mg oral tablet 1 mg, 1, tablet, By Mouth, Daily, # 30 tablet, Refills 0, Maintenance, 03/11/22 21:34:00 EST, Partial fill upon patient request if the prescription is for a schedule II opioid drug. Start Date: 03/11/22 Status: Ordered Social History Social History Type Response Tobacco Use: 4 or less cigar ettes(less than 1/4 pack)/day in last 30 days. Sex Patient Care team information Care Team Personnel Name: Ashwini Good RN Position: S RN Member Role: Primary Care Nurse Name: Ino Sanchez MD Position: Reference Physician Member Role: PCP Address: Address: [address] [place] [address], [address] [place] [address]- Care Team Related Persons Name: NISHANT JEAN BAPTISTE Address: home [address] [place] [address] [place] [id number]
--- OUTSIDE RECORDS SUMMARY | 2022-11-25 23:55 | XMS_ITS | Continuity of Care Document ---
Author Name Unknown Organization [facility] Address [address] [place] [id number]- Care Team Providers Care Clin Application Specialist Name Role Phone Daniel ARRIETA, Ino Emmanuel Primary Care Physician [phone] Encounter [facility] Date(s): 04/12/22 - 05/12/22 [facility] [address] [place] [id number] Attending Physician: Stevie Das Admitting Physician: Stevie Das Referring Physician: AdmtrStevie Allergies, Adverse Reactions, Alerts No Known Allergies Immunizations Not Given Vaccine Date Status Refusal Reason influenza virus vaccine, inactivated 03/13/22 Not Given Patient Refuses Medications duloxetine 60 mg oral enteric coated capsule [...] Reference Physician Member Role: PCP Address: Address: [address] [place] [address], [address] [place] [address]- Care Team Related Persons Name: NISHANT JEAN BAPTISTE Address: [address] [place] [address]
--- OUTSIDE RECORDS SUMMARY | 2022-11-25 23:55 | XMS_ITS | Continuity of Care Document ---
Author Name Unknown Organization [facility] ter Address [address] [place] [id number]- Care Team Providers Care Pipelines Superintendent Name Role Phone Daniel ARRIETA, Ino Emmanuel Primary Care Physician [place] [facility] [place](s): 03/11/22 - 03/14/[address] [address]- Encounter Diagnosis Facial abscess(Final) - 03/11/22 Discharge Disposition: A-D/C Home Attending Physician: Katiana Castorena MD Admitting Physician: Elma Zimmerman MD Referring Physician: Not on Staff, Referring MD Allergies, Adverse Reactions, Alerts No Known Allergies Immunizations Not Given Vaccine Date Status Refusal Reason influenza virus vaccine, inactivated 03/13/22 Not Given Patient Refuses Medications Augmentin 875 mg-125 mg oral tablet 1 tablet, By Mouth, Every 12 hours, for 42 days, # 84 tablet, 0 Refills, Acute 04/25/22 16:12:00 EDT, 03/14/22 16:12:00 EST, Tablet, [id number], Partial fill upon patient request if the [...] drug. Start Date: 03/11/22 Status: Ordered gabapentin 300 mg oral capsule 300 mg, Capsule, By Mouth, 03/14/22 15:00:00 EST Start Date: 03/14/22 Stop Date: 03/14/22 Status: Completed gabapentin 400 mg oral capsule Refills 0, [...] opioid drug. Start Date: 03/11/22 Status: Ordered Percocet 2.5 mg-325 mg oral tablet 2 tablet, By Mouth, Every 6 hours, PRN as needed for pain, # 10 tablet, 0 Refills, Acute 03/22/22 16:12:00 EST, 03/14/22 16:12:00 EST, Tablet, Partial fill upon patient request if the prescription isfor a schedule II opioid drug. Start Date: 03/14/22 Stop Date: 03/22/22 Status: Ordered risperiDONE 1 mg oral tablet 1 mg, 1, tablet, By Mouth, Daily, # 30 tablet, Refills 0, Maintenance, 03/11/22 21:34:00 EST, Partial fill upon patient request if the prescription is for a schedule II opioid drug. Start Date: 03/11/22 Status: Ordered Results Orders for Microbiology Reports Name Date Anaerobic Culture (ANAEROBIC CULTURE) Anaerobic Culture (ANAEROBIC CULTURE) Fungal Culture, Nonrespiratory (FUNGAL C ULT,NON-RESPIRATORY) 03/12/22 Fungal Culture, Nonrespiratory (FUNGAL C ULT,NON-RESPIRATORY) 03/12/22 Wound Deep Culture w/ Gram Smear (DEEP W OUND CULTURE) 03/12/22 Wound Deep Culture w/ Gram Smear (DEEP W OUND CULTURE) 03/12/22 Blood Culture 03/11/22 Blood Culture #2 03/11/22 Microbiology Reports TEST:Anaerobic Culture STATUS:Auth (Verified) BODY SITE: SOURCE:ABSCES COLLECTED DATE/TIME:03/12/22 8:30 AM Anaerobic Culture SPECIMEN DESCRIPTION : ABSCESS SPECIAL REQUESTS : NONE CULTURE : NO ANAEROBES ISOLATED REPORT STATUS : FINAL 03/14/2022 TEST:Anaerobic Culture STATUS:Auth (Verified) BODY SITE: SOURCE:ABSCES COLLECTED DATE/TIME:03/12/22 8:30 AM Anaerobic Culture SPECIMEN DESCRIPTION : ABSCESS SPECIAL REQUESTS : NONE CULTURE : NO ANAEROBES ISOLATED REPORT STATUS : FINAL 03/14/2022 TEST:Deep Wound Culture STATUS:Auth (Verified) BODY SITE: SOURCE:ABSCES COLLECTED DATE/TIME:03/12/22 8:30 AM Deep Wound Culture SPECIMEN DESCRIPTION : ABSCESS SPECIAL REQUESTS : NONE GRAM STAIN : 4+ POLYMORPHONUCLEAR LEUKOCYTES NO ORGANISMS SEEN CULTURE : No significant microorganisms isolated. Please consult the laboratory ([phone]) within 7 days if more definitive studies are clinically indicated. REPORT STATUS : FINAL 03/14/2022 TEST:Deep Wound Culture STATUS:Auth (Verified) BODY SITE: SOURCE:ABSCES COLLECTED DATE/TIME:03/12/22 8:30 AM Deep Wound Culture SPECIMEN DESCRIPTION : ABSCESS SPECIAL REQUESTS : NONE GRAM STAIN : 4+ POLYMORPHONUCLEAR LEUKOCYTES 1+ GRAM POSITIVE COCCI 1+ GRAM POSITIVE RODS CULTURE : No significant microorganisms isolated. Please consult the laboratory ([phone]) within 7 days if more definitive studies are clinically indicated. REPORT STATUS : FINAL 03/14/2022 TEST:Fungal Culture, Non-Respiratory STATUS:Unauthenticated BODY SITE: SOURCE:ABSCES COLLECTED DATE/TIME:03/12/22 8:30 AM Fungal Culture, Non-Respiratory SPECIMEN DESCRIPTION : ABSCESS SPECIAL REQUESTS : NONE DIRECT EXAM : NO FUNGAL ELEMENTS OBSERVED CULTURE : NO FUNGI ISOLATED AFTER 2 DAYS REPORT STATUS : PRELIMINARY REPORT TEST:Fungal Culture, Non-Respiratory STATUS:Unauthenticated BODY SITE: SOURCE:ABSCES COLLECTED DATE/TIME:03/12/22 8:30 AM Fungal Culture, Non-Respiratory SPECIMEN DESCRIPTION : ABSCESS SPECIAL REQUESTS : NONE DIRECT EXAM : NO FUNGAL ELEMENTS OBSERVED CULTURE : NO FUNGI ISOLATED AFTER 2 DAYS REPORT STATUS : PRELIMINARY REPORT TEST:Blood Culture, Second Order STATUS:Unauthenticated BODY SITE: SOURCE:Blood COLLECTED DATE/TIME:03/11/22 6:23 PM Blood Culture, Second Order SPECIMEN DESCRIPTION : BLOOD LFA SPECIAL REQUESTS : NONE CULTURE : NO GROWTH 3 DAYS REPORT STATUS : PRELIMINARY REPORT TEST:Blood Culture STATUS:Unauthenticated BODY SITE: SOURCE:Blood COLLECTED DATE/TIME:03/11/22 5:54 PM Blood Culture SPECIMEN DESCRIPTION : BLOOD LAC SPECIAL REQUESTS : NONE CULTURE : NO GROWTH 3 DAYS REPORT STATUS : PRELIMINARY REPORT Radiology Reports * Exam Date Time Procedure Performing Provider Status 03/11/22 6:[address] Soft Tissue Neck W/ Contrast Carisa Campbell; Auth (Verified) Notes: (CT Soft Tissue Neck W/ Contrast) Reason For Exam: facial abscess;Abscess/Inflammation RESULT: CT Soft Tissue Neck W/ Contrast CT Soft Tissue Neck W/ Contrast INDICATION/CLINICAL QUESTION: Hx of Present Illness: pt c o lower jaw dental pain for two weeks, worsening now, c o pain radiating down jaw, large red swollen bump, c o dental pain, difficulty swallowing. managing own airway, no drooling.; Reason: Abscess Inflammation; facial abscess; Clinical Question(s): Abscess; Order Comment: / Abscess. TECHNIQUE: Spiral CT neck with IV contrast formatted in 3 planes. 100 cc of Omnipaque 300 was administered intravenously. Weight-based protocol using automatic tube modulation was used to optimize exposure parameters. CTDIvol Body: 10.70 mGy, DLP Body: 412 mGy*cm. COMPARISON: None. FINDINGS: Director Of Real Estate View Findings, Lines and Tubes: None. Intracranial structures: Visualized portions are unremarkable. Orbits: Visualized portions are unremarkable. Paranasal sinuses and mastoids: Visualized portions are clear. Mucosal surfaces: Mucosal surfaces appear normal and symmetric, including the pharynx, larynx, and visualized portions of the upper trachea and esophagus. Superficial and deep neck spaces: A peripherally enhancing fluid collection is present inferior to the right anterior mandible in the right submandibular region and overlying subcutaneous fat. This measures 4.3 x 2.9 x 2.1 cm. This is contiguous with abnormal lucency in the right mandible describedbelow. There is extensive surrounding inflammatory fat stranding in the superficial subcutaneous fat of the upper neck as well as the adjacent submandibular regions. There is minimal asymmetric edemain the right floor of mouth, but intrinsic tongue muscles are preserved and there is no extension of the abscess into the floor of mouth. Other deep neck spaces, including retropharyngeal space, consumer insight manager space, and potential spaces, are preserved. Cervical lymph nodes: Multiple enlarged upper cervical lymph nodes, likely reactive, greatest at level 1 and 2, right greater than left. The largest node on the right at level 1B measures 2.1 x 1.2 cm Salivary glands: The parotid glands and submandibular glands are normal. Thyroid gland: Normal CT appearance Vascular structures: Unremarkable. No thrombosis or stenosis of the major cervical arteries. Upper chest: The upper lungs are clear. The upper mediastinum is unremarkable. Bones and teeth: Large dental caries/erosion of the right mandibular second molar ADA 31 is associated with prominent periapical lucency. Smaller dental caries of the right mandibular first molar ADA30 is also present. There is contiguous linear lucency extending between the roots of ADA 30 and ADA 31, with a free osseous fragment at the buccal superficial margin of the right mandible suggestiveof a small fracture due to undermining of the bone. A linear lucency extends anteriorly from these 2 molars into the right anterior mandible. Small island of density within this area of lucency suggests presence of a small sequestrum (201:45). Abnormal lucency tracks inferiorly and medially with ero franklin of the inferior and inner cortex of the right anterior mandible (201:46). Multiple additional dental caries are present within multiple bilateral maxillary and mandibular teeth, some of which are associated with additional smaller periapical lucencies. IMPRESSION: 1. 4.3 cm right submandibular soft tissue abscess related to odontogenic infection. 2. Extensive lucency in the right mandible related to large dental caries of the right mandibular first and second molars (ADA 30-31), with fragmentation/fracture of the small segment of the lateral cortex, and erosion and sequestrum in the more anterior and medial mandible, findings suggestive of chronic osteomyelitis This critical result was discussed with Dr. Oksana Roberson TUGBO[employer] ENGINEER on 03/11/2022 7:14 PM and it was ascertained that the content and urgency of the report was understood at the time of direct communication. WSN: [id number] Ordering Physician: Oksana Roberson Dictated By: Dayanara Tran MD Dictated Date/Time: 03/11/22 7:16 pm Reviewed By: Dayanara Tran MD Signed By: Dayanara Tran MD Signed Date/Time: 03/11/22 7:16 pm Transcribed By: YINKA Transcribed Date/Time: 03/11/22 6:55 pm Vital Signs Most recent to oldest [Reference Range]: 1 2 3 Height 175 cm (03/14/22 3:38 PM) 175 cm (03/14/22 11:20 AM) 175 cm (03/14/22 7:16 AM) Weight 79 kg (03/12/22 7:42 AM) 79 kg (03/11/22 11:27 PM) 79 kg (03/11/22 5:23 PM) Oxygen Saturation [94-100 %] 98 % (03/14/22 3:38 PM) 100 % (03/14/22 11:20 AM) 100 % (03/14/22 7:16 AM) Pulse Rate [55-90 bpm] 70 bpm (03/14/22 3:38 PM) 66 bpm (03/14/22 11:20 AM) 48 bpm *L* (03/14/22 7:16 AM) Body Mass Index [18.5-24.99 kg/m2] 25.8 kg/m2 *H* (03/12/22 7:42 AM) 25.8 kg/m2 *H* (03/11/22 11:27 PM) Blood Pressure [90-138/55-84 mm Hg] 126/80mm Hg (03/14/22 3:38 PM) 122/76mm Hg (03/14/22 11:20 AM) 121/71mm Hg (03/14/22 7:16 AM) Respiratory Rate [16-30 br/min] 16 br/min (03/14/22 4:40 PM) 18 br/min (03/14/22 3:40 PM) 20 br/min (03/14/22 3:38 PM) Temperature [96.8-100.4 DegF] 97.6 DegF (03/14/22 3:38 PM) 97.5 DegF (03/14/22 11:20 AM) 97.5 DegF (03/14/22 7:16 AM) Mode of Delivery (Oxygen) Room air (03/14/22 3:38 PM) Room air (03/14/22 11:20 AM) Room air (03/14/22 7:16 AM) Blood pressure sites Arm, left (03/14/22 3:38 PM) Arm, right (03/14/22 11:20 AM) Arm, right (03/14/22 7:16 AM) Temperature Route Oral (03/14/22 3:38 PM) Oral (03/14/22 11:20 AM) Oral (03/14/22 7:16 AM) Dry Weight 79 kg (03/11/22 11:27 PM) 79 kg (03/11/22 5:23 PM) Social History Social History Type Response Tobacco Use: 4 or less cigar ettes(less than 1/4 pack)/day in last 30 days. Sex Consult note * Martha Farley MD: PERFORM, MODIFY Event Display: Consult Authored Date: [id number] Patient: ??SARA TAYLOR ? Age:??31 Years?Sex:??Male?:??1990?? Chief Complaint/Reason for Consultation Mandibular osteomyelitis Referring physician- Rena Castorena MD History of Present Illness Mr. Taylor is a 31-year-old male with a past medical history of??mood disorder??who presents with right-sided facial swelling and tenderness.?? Patient reports that he had some dental procedures??couple weeks ago and??approximately 2 weeks ago he developed??pain, swelling, redness??of the lower right face. ??The following morning he awoke??and reports??he had significant pain with swallowing bothliquids and solids.?? He is able to handle his secretions, denies any difficulty breathing.?? Over the past 2 weeks??pain and swelling??have worsened. ??He saw dentist earlier this month??who referred him to??an oral surgeon, but he has not yet been seen.?? He denies any associated fevers or chills. ??Otherwise he denies any dizziness, lightheadedness,??cough, shortness of breath, chest pain, abdominal pain, nausea, vomiting,??diarrhea, dysuria,??other rashes??or skin changes, lower extremity pain or swelling. Initial work-up revealed??mild leukocytosis with WBC 11.5, there were no significant electrolyte disturbances, BUN 10, creatinine 0.9, ESR elevated at 61, CRP 8.1.?? CT demonstrated 4.3 cm right submandibular soft tissue abscess related to odontogenic infection, extensive lucency in the right mandible related to large dental caries of the right mandibular first and second molars, fragmentation/fracture of the small segment of the lateral cortex, erosion and sequestrum in the more anterior and medial mandible, findings suggestive of chronic osteomyelitis.?? He was taken to the OR on 03/12.?? Intra-Op, right mandibular, submental abscesses were noted along with acute on chronic osteomyelitis with necrotic bone and multiple carious teeth.?? Incision and drainage along with drain placements were performed.?? Patient has been on Unasyn.?? He reports feeling better since the surgery and is able to tolerate p.o. ?? Review of Systems 12 system ROS reviewed, negative except as noted above Objective Vital Signs?? Temperature: 97.6 DegF (03/13/22 11:45:00) Temperature Route: Oral (03/13/22 11:45:00) Pulse Rate: 70 bpm (03/13/22 11:45:00) Respiratory Rate: 18 br/min (03/13/22 11:45:00) Systolic Blood Pressure: 102 mm Hg (03/13/22 11:45:00) Diastolic Blood Pressure:??52 mm Hg??Low (03/13/22 11:45:00) Blood pressure sites: Arm, right (03/13/22 11:45:00) Mean Arterial Pressure: 69 mm Hg (03/13/22 11:45:00) Pulse Pressure: 50 mm Hg (03/13/22 11:45:00) Oxygen Saturation: 100 % (03/13/22 11:45:00) Mode of Delivery (Oxygen): Room air (03/13/22 11:45:00) Early Warning Score: 2 (03/13/22 11:46:03) ? Ventilator Settings?? No qualifying data available. ? Intake/Output? 03/11 20:47 03/13 07:00 03/12 07:00 03/11 07:00 03/10 07:00 ?? 03/13 11:57 03/13 11:57 03/13 06:59 03/12 06:59 03/11 06:59 Intake ?800 ?0 ?0 ?800 ?0 Output ?0 ?0 ?0 ?0 ?0 Net Total ?800 ?0 ?0 ?800 ?0 ? Precautions No Precautions documented.? Physical Exam Constitutional: Alert, in no distress. Mental Status: Oriented to person, place and time. Head: Normocephalic. Eyes: No visible??conjunctival??redness??or drainage Ear, Nose and Throat: Right lower face still slightly swollen??and mildly erythematous. ??Overlyingdressing removed.?? CHARITY drains noted??externally as well as internally inside the mouth.?? Slight amount of serosanguineous drainage noted.?? Poor dentition Neck: Supple, Full range of motion. Respiratory: No audible wheezing, stridor. Normal vesicular breath sounds CVS: S1, s2 normal, no murmurs Gastrointestinal: Abdomen soft, no tenderness. BS present Neurologic:??No aphasia, moving all extremities??spontaneously Skin: No rashes or lesions. Musculoskeletal: No cyanosis or clubbing. No gross deformities. Psychiatric: Normal mood and affect Assessment/Plan 31-year-old male??who presented to the hospital with??worsening pain, swelling and redness of rightlower face??after some dental procedures couple weeks ago.?? Poor dentition on exam.?? CT scan??with 4.3 cm right submandibular abscess,??anterior and medial??mandibular osteomyelitis. ??Taken to theOR on 03/12. Intra-Op, right mandibular, submental abscesses were noted along with acute on chronic osteomyelitis with necrotic bone and multiple carious teeth.?? Incision and drainage along with drain placements were performed.?? Patient has been on Unasyn.?Microbiology pending??but gram stain showing gram-positive cocci, gram-positive rods ?? Recommendations -Continue Unasyn, will probably transition to Augmentin -Await microbiology, pending which we will finalize??antibiotic plan -Duration of treatment will be??at least 6 weeks from the date of surgery, start date 03/12 -Biweekly??labs including??CBC with differential,??creatinine, LFTs,??ESR and CRP -We will follow-up with us as an outpatient -Patient requesting information about??diet??advancement,??will forward??patient's request??to primary team? Case discussed with Dr Dominguez Recommendations communicated to primary team via cortext ?? Martha Farley MD PGY4 Infectious diseases Fellow ? Histories Allergies Allergies ?(Active and Proposed Allergies Only) NKA? (Severity: Unknown severity, Onset: Unknown) ? Past Medical History/Problem List No problems documented. ? Past Surgical History No surgery history documented. ? Social History Alcohol Details:??Use: Never. Substance Abuse Details:??Use: Never. Tobacco Details:??Use: 4 or less cigarettes(less than 1/4 pack)/day in last 30 days. ? Family History Mother: Cancer ? [facility] ?? Medications Inpatient Medications Medications (18) Active SCHEDULED: (6) Ampicillin/Sulbactam 3 Gm Inj (Unasyn IVPB) ??3 Gm, IVPB, Every 6 hours Duloxetine 60 mg Capsule (DULoxetine Capsule) ??60 mg, By Mouth, Daily Enoxaparin 40 mg Inj (Enoxaparin Inj) ??40 mg 0.4 mL, Subcutaneous Injection, Daily Gabapentin 300 mg Capsule (gabapentin 300 mg oral capsule) ??300 mg, By Mouth, 3 times a day NaCl 0.9% Flush 3ml (NaCL 0.9% Flush) ??3 mL, IV Push, Every 8 hours Risperidone 1 mg Tablet (risperiDONE 1 mg oral tablet) ??1 mg, By Mouth, Daily at bedtime CONTINUOUS: (2) Lactated Ringers (1000 mL) Cont IV 1,000 mL (LR 1,000 mL) ??1,000 mL, IV Infusion, 100 mL/hr Lactated Ringers (1000 mL) Cont IV 1,000 mL (LR 1,000 mL) ??1,000 mL, IV Infusion, 125 mL/hr PRN: (10) Acetaminophen 325 mg Tablet (Acetaminophen Tablet) ??650 mg, By Mouth, Every 4 hours diphenhydrAMINE 50 mg/mL Inj (DiphenhydrAMINE Inj (PACU ONLY)) ??12.5 mg 0.25 mL, IV Push, Once Haloperidol Lactate 5 mg/mL Inj (1 mL) (Haloperidol LACTATE Inj (PACU ONLY)) ??1 mg 0.2 mL, IV Push, Once HYDROmorphone 0.5 mg/0.5 mL Inj Syringe (HYDROmorphone Inj (PACU ONLY)) ??0.5 mg 0.5 mL, IV Push Slowly, Every 10 minutes HydrOXYzine HCL 10mg Tablet (hydrOXYzine hydrochloride 10 mg oral tablet) ??50 mg, By Mouth, 3 times a day MorPHINE 4 mg Inj Syringe (MorPHINE Inj) ??4 mg, IV Push Slowly, Every 4 hours NaCl 0.9% Flush 3ml (NaCL 0.9% Flush) ??3 mL, IV Push, Every 8 hours nalOXONE ??400mcg/mL Inj (nalOXONE Inj) ??0.04 mg 0.1 mL, IV Push, Every 5 minutes Ondansetron 2mg/mL Inj (2mL Vial) (Ondansetron Inj) ??4 mg, IV Push Slowly, Every 6 hours Senna 8.6 mg / Docusate 50 mg tablet (Docusate/Senna Tablet) ??1 tablet, By Mouth, 2 times a day ? 72 Hour Antibiotic History Active Antibiotics Calendar Day Last Administered First Administered Ampicillin-Sulbactam??3 Gm, 100 mL/hr, IVPB, Every 6 hours ?2 03/13/2022 10:02 03/12/2022 01:04 ? Stopped Antibiotics Stop Date/Time Last Administered First Administered Ampicillin-Sulbactam??1.5 Gm, 100 mL/hr, IVPB, Once 03/11/2022 20:21 03/11/2022 20:19 03/11/2022 20:19 ? Results ? Microbiology ?? COVID-19 (Novel Coronavirus), Rapid PCR?? Completed?? Source: Nasal Body Site: Nose Collected Dt/Tm: 03/11/2022 20:26 Last Updated Dt/Tm: 03/11/2022 21:44 ? * Tamara Dominguez MD E: PERFORM Event Display: Consult Authored Date: ID ATTENDING: Pt was seen, examined and d/w the fellow. Agree with above plan - await all OR cultures and path to guide antibiotics and length of therapy. following with you. thanks for the consult. Admission evaluation note * Jaswant Lomax: PERFORM Event Display: Admission Note Authored Date: Patient: ??SARA TAYLOR ? Age:??31 Years?Sex:??Male?:??1990?? Chief Complaint/Reason for Consultation Facial pain and swelling History of Present Illness Mr. Taylor is a 31-year-old male with a past medical history of??mood disorder??who presents with right-sided facial swelling and tenderness.?? Patient reports that approximately 2 weeks ago he developed??pain, swelling, redness??of the lower right face. ??The following morning he awoke??and reports ??he had significant pain with swallowing both liquids and solids.?? He is able to handle his secretions, denies any difficulty breathing.?? Over the past 2 weeks??pain and swelling??have worsened. ??He saw dentist earlier this month??who referred him to??an oral surgeon, but he has not yet been seen.?? He denies any associated fevers or chills. ??Otherwise he denies any dizziness, lightheadedness,??cough, shortness of breath, chest pain, abdominal pain, nausea, vomiting,??diarrhea, dysuria,??other rashes??or skin changes, lower extremity pain or swelling. ?? Upon arrival in the emergency department, patient was afebrile, heart rate 61 bpm, respirations 16, blood pressure 132/84, satting 99% on room air oxygen.?? Laboratory work-up revealed mild leukocytosis with WBC 11.5, there were no significant electrolyte disturbances, BUN 10, creatinine 0.9, ESR elevated at 61, CRP 8.1.?? CT demonstrated 4.3 cm right submandibular soft tissue abscess related to odontogenic infection, extensive lucency in the right mandible related to large dental caries of the right mandibular first and second molars, fragmentation/fracture of the small segment of the lateral cortex, erosion and sequestrum in the more anterior and medial mandible, findings suggestive of chronic osteomyelitis.?? OMFS was consulted by ED provider with recommendation for IV antibiotics, keep n.p.o. after midnight for potential I&D with drain placement tomorrow.?? In the emergency department he received IV Unasyn, morphine for pain control and medical admission was requested for further evaluation and management. Review of Systems Complete review of systems negative except as noted in HPI?? Objective ? Vital Signs?? Temperature: 98.1 DegF (03/11/22 20:25:00) Temperature Route: Oral (03/11/22 20:25:00) Pulse Rate: 66 bpm (03/11/22 20:25:00) Respiratory Rate: 18 br/min (03/11/22 20:25:00) Systolic Blood Pressure: 119 mm Hg (03/11/22:25:00) Diastolic Blood Pressure: 79 mm Hg (03/11/22:25:00) Blood pressure sites: Arm, left (03/11/22:25:00) Mean Arterial Pressure: 100 mm Hg (03/11/22 17:23:00) Pulse Pressure: 40 mm Hg (03/11/22:25:00) Oxygen Saturation: 99 % (03/11/22:25:00) Mode of Delivery (Oxygen): Room air (03/11/22 20:25:00) ? Physical Exam General Appearance: Resting in bed in no acute distress Head: Normocephalic and atraumatic Neck: Supple, trachea midline?? Eyes: Conjunctiva normal?? ENT: Mucus membranes moist, very poor dentition, significant right-sided facial swelling, erythema,tenderness to palpation of the submandibular region, extends below the jawline Cardiac: RRR. No M/G/R Respiratory: CTA, no wheezes or rhonchi?? GI: Soft, nontender, nondistended, bowel sounds present?? Neuro: Alert and oriented x3, moving all extremities with equal strength Extremities: No cyanosis, no edema?? Skin: Warm and dry?? Psych: Appropriate affect Assessment/Plan Diagnoses Facial abscess ??(L02.01) ?? Assessment:??Mr. Taylor is a 31-year-old male with a past medical history of mood disorder who presents with right-sided facial swelling and tenderness found to have submandibular soft issue abscess. ?? Facial abscess Patient presenting with 2-week history of right lower facial swelling, redness, tenderness CT with 4.3 cm right submandibular soft tissue abscess related to odontogenic infection as well as extensive dental disease Currently afebrile, mild leukocytosis of 11.5 OMFS consulted - appreciate recommendations Plan -NPO except for medications -Unasyn 3g q6h -IV hydration -Morphine as needed for pain control -Keep HOB elevated ?? Mood disorder: Continue home regimen of??Gabapentin, Risperidone, Hydroxyzine, Duloxetine (patient not clear on dosing/timing of his gabapentin, review of external med history shows??this month he??filled 600 mg #28 as well as 400 mg #56 capsules, hopefully can confirm exact dose with pharmacy in AM, in??interim I have ordered 300mg TID) ?? VTE Prophylaxis:??Moderate risk, Lovenox ?? Code Status:??Full code Histories Allergies Allergies ?(Active and Proposed Allergies Only) NKA? (Severity: Unknown severity, Onset: Unknown) ?? Past Medical History/Problem List Mood disorder ?? Past Surgical History No surgery history documented. ?? Social History Alcohol Details:??Use: Never. Substance Abuse Details:??Use: Never. Tobacco Details:??Use: 4 or less cigarettes(less than 1/4 pack)/day in last 30 days. ?? Family History Mother: Cancer (unknown) Medications Home Medications Duloxetine (duloxetine 60 mg oral enteric coated capsule)?1?capsule?60?Milligram?By Mouth?Daily HydrOXYzine (hydrOXYzine hydrochloride 50 mg oral tablet)?1?tab(s)?50?Milligram?By Mouth?3 times a day?as needed?for anxiety Risperidone (risperiDONE 1 mg oral tablet)?1?Milligram?1?tablet?By Mouth?Daily Results Recent Labs BLOOD COUNT & DIFF WBC 11.5 k/mm3 (High)?? 03/11/2022 17:54 RBC 4.35 m/mm3 (Low)?? 03/11/2022 17:54 Hgb 13.4 Gm/dL (Low)?? 03/11/2022 17:54 Hct 39.0 % (Low)?? 03/11/2022 17:54 MCV 89.7 femtoliters ()?? 03/11/2022 17:54 MCH 30.8 pg ()?? 03/11/2022 17:54 MCHC 34.4 g/dL ()?? 03/11/2022 17:54 Platelet Count 289 k/mm3 ()?? 03/11/2022 17:54 RDW-SD 43.6 femtoliters ()?? 03/11/2022 17:54 MPV 9.3 femtoliters (Low)?? 03/11/2022 17:54 Nucleated RBC (Automated) 0.0 #/100 WBC'S ()?? 03/11/2022 17:54 Abs. NRBC 0.0 k/mm3 ()?? 03/11/2022 17:54 Abs. Neut 8.4 k/mm3 (High)?? 03/11/2022 17:54 Abs. Lymph 1.6 k/mm3 ()?? 03/11/2022 17:54 Abs. Addison 1.3 k/mm3 ()?? 03/11/2022 17:54 Abs. Eo 0.1 k/mm3 ()?? 03/11/2022 17:54 Abs. Baso 0.0 k/mm3 ()?? 03/11/2022 17:54 Neut % 73.3 % ()?? 03/11/2022 17:54 Lymph % 13.5 % (Low)?? 03/11/2022 17:54 Addison % 11.7 % (High)?? 03/11/2022 17:54 Eos % 0.9 % ()?? 03/11/2022 17:54 Baso % 0.3 % ()?? 03/11/2022 17:54 Imm Gran 0.3 % ()?? 03/11/2022 17:54 Abs. Imm Gran 0.0 k/mm3 ()?? 03/11/2022 17:54 ?? CHEM GENERAL Sodium 139 mmol/L ()?? 03/11/2022 17:54 Potassium 4.5 mmol/L ()?? 03/11/2022 17:54 Chloride 98 mmol/L ()?? 03/11/2022 17:54 Bicarbonate Level 29 mmol/L ()?? 03/11/2022 17:54 Anion Gap 12 ()?? 03/11/2022 17:54 Glucose Level 94 mg/dL ()?? 03/11/2022 17:54 BUN 10 mg/dL ()?? 03/11/2022 17:54 Creatinine-Blood 0.9 mg/dL ()?? 03/11/2022 17:54 Estimated GFR Creatinine 119 ML/MIN/1.73 M2 ()?? 03/11/2022 17:54 Calcium 9.9 mg/dL ()?? 03/11/2022 17:54 Protein, Total 7.7 Gm/dL ()?? 03/11/2022 17:54 Albumin 4.5 Gm/dL ()?? 03/11/2022 17:54 Alkaline Phosphatase 79 units/L ()?? 03/11/2022 17:54 AST (SGOT) 10 units/L ()?? 03/11/2022 17:54 ALT (SGPT) 9 units/L ()?? 03/11/2022 17:54 Bilirubin, Total 0.6 mg/dL ()?? 03/11/2022 17:54 Bilirubin, Direct <0.2 mg/dL ()?? 03/11/2022 17:54 Bilirubin, Indirect Direct bilirubin is less than the measureable limit. Therefore, indirect mg/dL ()?? 03/11/2022 17:54 Lactate 1.1 mmol/L ()?? 03/11/2022 17:29 C-Reactive Protein 8.1 mg/dL (High)?? 03/11/2022 17:54 ?? HEME OTHER Sed Rate 61 mm/hr (High)?? 03/11/2022 17:54 ?? TOXICOLOGY/TDM Cocaine Metabolite Screen, Urine NONE DETECTED ()?? 03/11/2022 18:19 Opiate Screen, Urine NONE DETECTED ()?? 03/11/2022 18:19 ?? UA/URINALYSIS Appear/Color, Urine YELLOW ()?? 03/11/2022 18:19 Specific [place], Urine 1.021 ()?? 03/11/2022 18:19 pH, Urine 6.5 ()?? 03/11/2022 18:19 Albumin, Urine 1+ (Abnormal)?? 03/11/2022 18:19 Glucose, Urine NEGATIVE ()?? 03/11/2022 18:19 Ketones, Urine 1+ (Abnormal)?? 03/11/2022 18:19 Bilirubin, Urine NEGATIVE ()?? 03/11/2022 18:19 Hemoglobin, Urine NEGATIVE ()?? 03/11/2022 18:19 Nitrite, Urine NEGATIVE ()?? 03/11/2022 18:19 Leukocyte, Urine NEGATIVE ()?? 03/11/2022 18:19 Urobilinogen 4 mg/dL (Abnormal)?? 03/11/2022 18:19 WBC's, Urine 1 /HPF ()?? 03/11/2022 18:19 RBC's, Urine NONE SEEN /HPF ()?? 03/11/2022 18:19 Bacteria SLIGHT HPF (Abnormal)?? 03/11/2022 18:19 Squamous Epith <1 /HPF ()?? 03/11/2022 18:19 Mucus SLIGHT /LPF ()?? 03/11/2022 18:19 Hold Urine Culture Testing available 48 hours from time of collection. ()?? 03/11/2022 18:19 ?? VIROLOGY COVID-19 by RT-PCR NEGATIVE ()?? 03/11/2022 20:36 ? Microbiology ?? COVID-19 (Novel Coronavirus), Rapid PCR?? Completed?? Source: Nasal Body Site: Nose Collected Dt/Tm: 03/11/2022 20:26 Last Updated Dt/Tm: 03/11/2022 21:44 ? Imaging(s) ?CT Soft Tissue Neck W/ Contrast ?? 03/11/2022 18:47??by Dayanara Tran MD ?IMPRESSION: 1. 4.3 cm right submandibular soft tissue abscess related to odontogenic infection. 2. Extensive lucency in the right mandible related to large dental caries of the right mandibular first and second molars (ADA 30-31), with fragmentation/fracture of the small segment of the lateral cortex, and erosion and sequestrum in the more anterior and medial mandible, findings suggestive of chronic osteomyelitis ?? Hospital Progress note * Angelito Fitzpatrick RN: VERIFY, PERFORM, SIGN Event Display: Progress Note Hospital Authored Date: Patient: SARA TAYLOR Age: 31 years Sex: Male : 1990 Associated Diagnoses: None Author: Angelito Fitzpatrick RN Findings Pt was discharged from b. IV removed. Medications reviewed. Education completed. Pt left unit ambulating independently. Paperwork signed and placed in chart. Discharge Information Case Management Discharge Plan : Case Management Discharge Plan Data 03/14/2022 16:51 EST Discharge Level of Care at Discharge Homehealth/VNA Discharge VNA/Hospice/Home Care [facility] 03/14/2022 16:38 EST Discharge Level of Care at Discharge Homehealth/VNA Discharge VNA/Hospice/Home Care [facility] Name of Agency #1 [facility] Categories #1 [facility] Service Comments #1 You will be discharged today with [facility] - prison. A nurse will call to arrange a visit, please call [phone] with questions or concerns * Mandi ARRIETA, Shellie: PERFORM Event Display: Progress Note Hospital Authored Date: [id number] Patient: ??CLAUDIA, CIRUS ? Age:??31 Years?Sex:??Male?:??1990?? 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 (Severity: Unknown severity, Onset: Unknown) ? Past Medical History No problems documented. ? Objective Measurements?? Height: 175 cm (03/14/22) Weight: 79 kg (03/12/22) Dry Weight: 79 kg (03/11/22) Body Mass Index:??25.8 kg/m2??High (03/12/22) ? Vital Signs?? Temperature: 97.6 DegF (03/14/22 15:38:00) Temperature Route: Oral (03/14/22 15:38:00) Pulse Rate: 70 bpm (03/14/22 15:38:00) Respiratory Rate: 18 br/min (03/14/22 15:40:00) Systolic Blood Pressure: 126 mm Hg (03/14/22 15:38:00) Diastolic Blood Pressure: 80 mm Hg (03/14/22 15:38:00) Blood pressure sites: Arm, left (03/14/22 15:38:00) Mean Arterial Pressure: 95 mm Hg (03/14/22 15:38:00) Pulse Pressure: 46 mm Hg (03/14/22 15:38:00) Oxygen Saturation: 98 % (03/14/22 15:38:00) Mode of Delivery (Oxygen): Room air (03/14/22 15:38:00) Early Warning Score: 2 (03/14/22 15:41:32) ? Ventilator Settings?? No qualifying data available. ? Intake/Output? 03/11 20:47 03/14 07:00 03/13 07:00 03/12 07:00 03/11 07:00 ?? 03/14 16:16 03/14 16:16 03/14 06:59 03/13 06:59 03/12 06:59 Intake ? 1925 ?0 ? 1125 ?0 ?800 Output ?0 ?0 ?0 ?0 ?0 Net Total ? 1925 ?0 ? 1125 ?0 ?800 ? Precautions No Precautions documented.? Physical Exam Constitutional: Alert x ) x3, unkempt pt,??in no distress. HEENT: no conjunctival redness, rt submandibular swelling, induration with a [place] intact withoutany notable drain, poor dentition, PERRL, neck full ROM? Respiratory: Normal breath sounds CTA BL CVS: RRR no murmur appreciated Gastrointestinal: Abdomen soft, no tenderness. BS present : Snow present Neurologic:??upper extremity tremor, no hyperreflexia noted Skin: No rashes or lesions. Musculoskeletal: No edema or joint effusion noted. _ Inpatient Medications Medications (18) Active SCHEDULED: (6) Ampicillin/Sulbactam 3 Gm Inj (Unasyn IVPB) ??3 Gm, IVPB, Every 6 hours Duloxetine 60 mg Capsule (DULoxetine Capsule) ??60 mg, By Mouth, Daily Enoxaparin 40 mg Inj (Enoxaparin Inj) ??40 mg 0.4 mL, Subcutaneous Injection, Daily Gabapentin 300 mg Capsule (gabapentin 300 mg oral capsule) ??300 mg, By Mouth, 3 times a day NaCl 0.9% Flush 3ml (NaCL 0.9% Flush) ??3 mL, IV Push, Every 8 hours Risperidone 1 mg Tablet (risperiDONE 1 mg oral tablet) ??1 mg, By Mouth, Daily at bedtime CONTINUOUS: (2) Lactated Ringers (1000 mL) Cont IV 1,000 mL (LR 1,000 mL) ??1,000 mL, IV Infusion, 100 mL/hr Lactated Ringers (1000 mL) Cont IV 1,000 mL (LR 1,000 mL) ??1,000 mL, IV Infusion, 125 mL/hr PRN: (10) Acetaminophen 325 mg Tablet (Acetaminophen Tablet) ??650 mg, By Mouth, Every 4 hours diphenhydrAMINE 50 mg/mL Inj (DiphenhydrAMINE Inj (PACU ONLY)) ??12.5 mg 0.25 mL, IV Push, Once Haloperidol Lactate 5 mg/mL Inj (1 mL) (Haloperidol LACTATE Inj (PACU ONLY)) ??1 mg 0.2 mL, IV Push, Once HYDROmorphone 0.5 mg/0.5 mL Inj Syringe (HYDROmorphone Inj (PACU ONLY)) ??0.5 mg 0.5 mL, IV Push Slowly, Every 10 minutes HydrOXYzine HCL 10mg Tablet (hydrOXYzine hydrochloride 10 mg oral tablet) ??50 mg, By Mouth, 3 times a day MorPHINE 4 mg Inj Syringe (MorPHINE Inj) ??4 mg, IV Push Slowly, Every 4 hours NaCl 0.9% Flush 3ml (NaCL 0.9% Flush) ??3 mL, IV Push, Every 8 hours nalOXONE ??400mcg/mL Inj (nalOXONE Inj) ??0.04 mg 0.1 mL, IV Push, Every 5 minutes Ondansetron 2mg/mL Inj (2mL Vial) (Ondansetron Inj) ??4 mg, IV Push Slowly, Every 6 hours Senna 8.6 mg / Docusate 50 mg tablet (Docusate/Senna Tablet) ??1 tablet, By Mouth, 2 times a day ? 72 Hour Antibiotic History Active Antibiotics Calendar Day Last Administered First Administered Ampicillin-Sulbactam??3 Gm, 100 mL/hr, IVPB, Every 6 hours ?3 03/14/2022 15:40 03/12/2022 01:04 ? Stopped Antibiotics Stop Date/Time Last Administered First Administered Ampicillin-Sulbactam??1.5 Gm, 100 mL/hr, IVPB, Once 03/11/2022 20:21 03/11/2022 20:19 03/11/2022 20:19 ? Results Abnormal Labs No lab data available. ?? CBC, CBC w/Diff?? No qualifying data available. ?? BMP, Mg, and Phos?? No qualifying data available. ?? LFT?? No qualifying data available. ?? Urinalysis?? No qualifying data available. ? Culture/Event_id: ?Anaerobic Culture/[id number]?? Collect date: ?03/12/22 08:30 ? Result Status: ?Auth (Verified) Result Date: ?03/14/22 12:08 ? SPECIMEN DESCRIPTION : ABSCESS ?? SPECIAL REQUESTS : NONE ?? CULTURE : NO ANAEROBES ISOLATED ?? REPORT STATUS : FINAL 03/14/2022? Culture/Event_id: ?Anaerobic Culture/[id number]?? Collect date: ?03/12/22 08:30 ? Result Status: ?Auth (Verified) Result Date: ?03/14/22 12:07 ? SPECIMEN DESCRIPTION : ABSCESS ?? SPECIAL REQUESTS : NONE ?? CULTURE : NO ANAEROBES ISOLATED ?? REPORT STATUS : FINAL 03/14/2022? Culture/Event_id: ?Fungal Culture, Non-Respiratory/[id number]?? Collect date: ?03/12/22 08:30 ? Result Status: ?Preliminary Result Date: ?03/14/22 10:36 ? SPECIMEN DESCRIPTION : ABSCESS ?? SPECIAL REQUESTS : NONE ?? DIRECT EXAM : NO FUNGAL ELEMENTS OBSERVED ?? CULTURE : NO FUNGI ISOLATED AFTER 2 DAYS ?REPORT STATUS : ?? PRELIMINARY REPORT ? Culture/Event_id: ?Fungal Culture, Non-Respiratory/[id number]?? Collect date: ?03/12/22 08:30 ? Result Status: ?Preliminary Result Date: ?03/14/22 10:36 ? SPECIMEN DESCRIPTION : ABSCESS ?? SPECIAL REQUESTS : NONE ?? DIRECT EXAM : NO FUNGAL ELEMENTS OBSERVED ?? CULTURE : NO FUNGI ISOLATED AFTER 2 DAYS ?REPORT STATUS : ?? PRELIMINARY REPORT ? Culture/Event_id: ?Deep Wound Culture/[id number]?? Collect date: ?01/28/23 08:30 ? Result Status: ?Auth (Verified) Result Date: ?03/14/22 07:39 ? SPECIMEN DESCRIPTION : ABSCESS ?? SPECIAL REQUESTS : NONE ?? GRAM STAIN : 4+ POLYMORPHONUCLEAR LEUKOCYTES ?1+ GRAM POSITIVE COCCI ?1+ GRAM POSITIVE RODS ?? CULTURE : No significant microorganisms isolated. ?Please consult the laboratory ([phone]) within 7 days if more ? definitive studies are clinically indicated. ?? REPORT STATUS : FINAL 03/14/2022? Culture/Event_id: ?Deep Wound Culture/[id number]?? Collect date: ?03/12/22 08:30 ? Result Status: ?Auth (Verified) Result Date: ?03/14/22 07:38 ? SPECIMEN DESCRIPTION : ABSCESS ?? SPECIAL REQUESTS : NONE ?? GRAM STAIN : 4+ POLYMORPHONUCLEAR LEUKOCYTES ?NO ORGANISMS SEEN ?? CULTURE : No significant microorganisms isolated. ?Please consult the laboratory ([phone]) within 7 days if more ? definitive studies are clinically indicated. ?? REPORT STATUS : FINAL 03/14/2022? Culture/Event_id: ?Blood Culture, Second Order/[id number]?? Collect date: ?03/11/22 18:23 ? Result Status: ?Preliminary Result Date: ?03/13/22 23:02 ? SPECIMEN DESCRIPTION : BLOOD ??LFA ?? SPECIAL REQUESTS : NONE ?? CULTURE : NO GROWTH AFTER 48 HOURS ?REPORT STATUS : ?? PRELIMINARY REPORT ? Culture/Event_id: ?Blood Culture/[id number]?? Collect date: ?03/11/22 17:54 ? Result Status: ?Preliminary Result Date: ?03/13/22 23:02 ? SPECIMEN DESCRIPTION : BLOOD LAC ?? SPECIAL REQUESTS : NONE ?? CULTURE : NO GROWTH AFTER 48 HOURS Assessment/Plan Chief Complaint: Facial pain and swelling ?? Diagnoses Facial abscess ??(L02.01) ?? Assessment:??PT is a 31 y/o??male with pmhx of mood disorder with poor dentition who resented with rt sided facial swelling after a recent dental procedures with CT showing a 4.3 cm right submandibular abscess, anterior and medial mandibular osteomyelitis s/p I&D on 03/[address], doing well on Unasyn with grams stain showing gram-positive cocci, gram-positive rods with negative final culture?Recommendations ??-Transition pt to Augmentin 875/125 q12hrs??to complete??6 weeks from the date of surgery, start date 03/12 ??-Biweekly labs including CBC with differential, creatinine, LFTs, ESR and CRP, F/U with ID in 2-3weeks ?? ID will sign off care Thank You ? * Jaren ALATORRE, Max: PERFORM, SIGN, VERIFY Event Display: Progress Note Hospital Authored Date: Patient: SARA TAYLOR Age: 31 years Sex: Male : 1990 Associated Diagnoses: None Author: Jaren ALATORRE, Max Subjective No acute events overnight Tolerating PO Pain well controlled Voiding Objective Vital Signs Vitals : VITALS 03/14/2022 11:20 EST Height 175 cm Temperature 97.5 DegF Temperature Route Oral Pulse Rate 66 bpm Respiratory Rate 20 br/min Systolic Blood Pressure 122 mm Hg Diastolic Blood Pressure 76 mm Hg Blood pressure sites Arm, right Mean Arterial Pressure 91 mm Hg Pulse Pressure 46 mm Hg Oxygen Saturation 100 % Mode of Delivery (Oxygen) Room air . General: no acute events overnight Maxillofacial: anitra, eomi neck midline drain in place secured with silk sutures serosanguinous fluids cheek softer mild erythema Oral Cavity: sekou 35 opening tongue from uvula midline fom soft extraction sites hemostatic sharon drain secured with silk sutures Results Review 7 Day Results Results Laboratory : LABORATORY 03/13/2022 7:08 EST WBC 9.7 k/mm3 RBC 3.94 m/mm3 L Hgb 11.9 Gm/dL L Hct 34.8 % L MCV 88.3 femtoliters MCH 30.2 pg MCHC 34.2 g/dL Platelet Count 284 k/mm3 RDW-SD 41.4 femtoliters MPV 9.5 femtoliters Nucleated RBC (Automated) 0.0 #/100 WBC'S Abs. NRBC 0.0 k/mm3 Assessment s/p incision and drainage. Leukocytosis downtrending. Pain well controlled. Hemodynamically stable Impression and Plan Full diet HOB elevated 45 degrees Peridex mouthwash TID Continue abx Change dressing BID F/u cultures Ok to discharge F/u in office for drain removal Call w/ questions [phone] Note * Angelito Fitzpatrick RN: PERFORM Event Display: Discharge/Transfer Note Hospital Authored Date: Nursing Discharge Note Entered On: 03/14/2022 16:51 EST Performed On: 03/14/2022 16:51 EST by Angelito Fitzpatrick RN Nursing Discharge Note 2 Discharge Time : 03/14/2022 17:15 EST Angelito Fitzpatrick RN - 03/14/2022 17:20 EST Discharge Level of Care at Discharge : Homehealth/VNA Discharge VNA/Hospice/Home Care(v001) : [facility] Patient Left Unit Via : Ambulatory Patient Accompanied Off Unit with : Significant other, Responsible adult DC Instructions Provided & Signed by Pt : Yes Patient Understands D/C Instructions : Yes Patient Instructions Discharge Signed : Yes Did Pt have Specialty Bed or Wound Vac : No Angelito Fitzpatrick RN - 03/14/2022 16:51 EST * Raffaele ARRIETA, Katiana Hanson: PERFORM, MODIFY Event Display: Discharge/Transfer Note Hospital Authored Date: [id number] Patient: ??CLAUDIA, CIRUS ? Age:??31 Years?Sex:??Male?:??1990?? Patient Information Discharge Location: [facility] Primary Care Physician: Ino Sanchez MD Admit Date/Time: 03/11/22 20:47 Discharge Disposition Discharge Disposition: ?? Discharge Diagnosis Rt submental/sub mandibular abscess s/p??I&D ?? _ Discharge Medications Amoxicillin-Clavulanate (Augmentin 875 mg-125 mg oral tablet)?1?tab(s)?By Mouth?Every 12 hours?for 42?Days Duloxetine (duloxetine 60 mg oral enteric coated capsule)?1?capsule?60?Milligram?By Mouth?Daily HydrOXYzine (hydrOXYzine hydrochloride 50 mg oral tablet)?1?tab(s)?50?Milligram?By Mouth?3 times a day?as needed?for anxiety Oxycodone / Acetaminophen (Percocet 2.5 mg-325 mg oral tablet)?2?tab(s)?By Mouth?Every 6 hours?as needed?as needed for pain Risperidone (risperiDONE 1 mg oral tablet)?1?Milligram?1?tablet?By Mouth?Daily ? Medications Started Augmentin and percocet Allergies Allergies ?(Active and Proposed Allergies Only) NKA? (Severity: Unknown severity, Onset: Unknown) ? Hospital Course ??31-year-old male with a past medical history of??mood disorder??who presents with right-sided facial swelling and tenderness.?? Patient reports that approximately 2 weeks ago he developed??pain, swelling, redness??of the lower right face. ??The following morning he awoke??and reports??he had significant pain with swallowing both liquids and solids.?? He is able to handle his secretions, denies any difficulty breathing.?? Over the past 2 weeks??pain and swelling??have worsened. ??He saw dentist earlier this month??who referred him to??an oral surgeon, but he has not yet been seen.?? He denies any associated fevers or chills. ??Otherwise he denies any dizziness, lightheadedness,??cough, shortness of breath, chest pain, abdominal pain, nausea, vomiting,??diarrhea, dysuria,??other rashes??or skin changes, lower extremity pain or swelling. ?? Upon arrival in the emergency department, patient was afebrile, heart rate 61 bpm, respirations 16,blood pressure 132/84, satting 99% on room air oxygen.?? Laboratory work-up revealed mild leukocytosis with WBC 11.5, there were no significant electrolyte disturbances, BUN 10, creatinine 0.9, ESR elevated at 61, CRP 8.1.?? CT demonstrated 4.3 cm right submandibular soft tissue abscess related to odontogenic infection, extensive lucency in the right mandible related to large dental caries of theright mandibular first and second molars, fragmentation/fracture of the small segment of the lateral cortex, erosion and sequestrum in the more anterior and medial mandible, findings suggestive of chr onic osteomyelitis.?? OMFS was consulted by ED provider with recommendation for IV antibiotics, keep n.p.o. after midnight for potential I&D with drain placement tomorrow.?? In the emergency department he received IV Unasyn, morphine for pain control and medical admission was requested for further evaluation and management. Objective Assessment and Plan Rt submental/sub mandibular abscess s/p??I&D Presented with 2-week history of right lower facial swelling, redness, tenderness CT with 4.3 cm right submandibular soft tissue abscess related to odontogenic infection as well as extensive dental disease ?? -Tolerated diet -Unasyn IV 3g q6h changed to po Augmentin for 6 weeks - pain control - Wound and blood cx neg. - ID recs as above. ?? ID cortexts ok for discharge, po Augmentin for 6 weeks. ?? OMFS recs Full diet??, HOB elevated 45 degrees??, Peridex mouthwash TID, Change dressing BID F/u in office for drain removal??.Call w/ questions [phone]? pt is clinically and hemodynamically stable at discharge ? Mood disorder: Continue home regimen of??Gabapentin, Risperidone, Hydroxyzine, Duloxetine (patient not clear on dosing/timing of his gabapentin, review of external med history shows??this month he??filled 600 mg #28 as well as 400 mg #56 capsules, hopefully can confirm exact dose with pharmacy in AM, in??interim I have ordered 300mg TID) ?? Vital Signs?? Temperature: 97.6 DegF (03/14/22 15:38:00) Temperature Route: Oral (03/14/22 15:38:00) Pulse Rate: 70 bpm (03/14/22 15:38:00) Respiratory Rate: 18 br/min (03/14/22 15:40:00) Systolic Blood Pressure: 126 mm Hg (03/14/22 15:38:00) Diastolic Blood Pressure: 80 mm Hg (03/14/22 15:38:00) Blood pressure sites: Arm, left (03/14/22 15:38:00) Mean Arterial Pressure: 95 mm Hg (03/14/22 15:38:00) Pulse Pressure: 46 mm Hg (03/14/22 15:38:00) Oxygen Saturation: 98 % (03/14/22 15:38:00) Mode of Delivery (Oxygen): Room air (03/14/22 15:38:00) Early Warning Score: 2 (03/14/22 15:41:32) ? . Physical Exam General Appearance: Resting in bed in no acute distress Head: Normocephalic and atraumatic Neck: Supple, trachea midline?? Eyes: Conjunctiva normal?? ENT: Mucus membranes moist, very poor dentition, improving swelling, red and tender, with drain insitu. Cardiac: RRR. No M/G/R Respiratory: CTA, no wheezes or rhonchi?? GI: Soft, nontender, nondistended, bowel sounds present?? Neuro: Alert and oriented x3, moving all extremities with equal strength Extremities: No cyanosis, no edema?? Skin: Warm and dry?? Psych: Appropriate affect _ Surgical Procedures Incision and Drainage Abscess 03/12/2022 08:25 Pending Results Blood Culture ordered on 03/11/2022 Blood Culture #2 ordered on 03/11/2022 COVID-19 (2019 Novel Coronavirus) PCR ordered on 03/14/2022 Fungal Culture, Nonrespiratory ordered on 03/12/2022 Fungal Culture, Nonrespiratory ordered on 03/12/2022 Pathology Tissue Request ordered on 03/12/2022 Follow-Up Appointments Please Call ?? for appointment w/ questions [phone]?? Home Health Face to Face *Denotes mandatory unger ?? *I certify that this patient is under my care and that I or an allowed non- physician working with me had a face to face encounter with the patient on this date:??03/14/2022 15:56 ?? *The encounter with the patient was in whole, or in part, for the following medical condition, which is the primary diagnosis(es) for home health care:??Facial abscess (L02.01) ? *Select the indications for the discipline/s that are being arranged for this patient. Nursing (select all that apply): [_] None [_] Medication management (reconciliation, teaching)?? [_] Chronic disease management?? [x_] Wound care and treatment?? [_] Home safety evaluation [_] Administer SQ/IM/IV medications?? [_] Cath care?? [_] Drain care?? [_] Trach or GT care?? Other _ Occupation Therapy (select all that apply): [_] None [_] ADL Management [_] Fall prevention training [_] Energy conservation [_] Cognitive training Other _ Physical Therapy (select all that apply): [_] None [_] Functional mobility training [_] Home exercise program to strengthen [_] Increase ROM?? [_] Falls prevention training [_] Home maintenance program for chronic disease Other _ Speech Therapy (select all that apply): [_] None [_] Swallow evaluation and training [_] Speech and language training [_] Cognitive training to process, organize, and/or recall information Other _ ? *Homebound due to (select all that apply): [_] Inability to leave home without assistance/supervision [_] Inability to ambulate without assistance [x_] Pain [_] Decreased strength and endurance [_] Unsteady gait [_] Severe SOB and fatigue [_] Impaired transfers [_] Inability to negotiate stairs [_] Limited weight bearing [_] Mental status change? *Physician Signature: katiana castorena_ ?? *By signing this, I certify that I have personally evaluated the patient and agree with the findings and recommendations as documented above. ? Results Discharge Labs BLOOD COUNT & DIFF WBC 9.7 k/mm3 ()?? 03/13/2022 07:08 RBC 3.94 m/mm3 (Low)?? 03/13/2022 07:08 Hgb 11.9 Gm/dL (Low)?? 03/13/2022 07:08 Hct 34.8 % (Low)?? 03/13/2022 07:08 MCV 88.3 femtoliters ()?? 03/13/2022 07:08 MCH 30.2 pg ()?? 03/13/2022 07:08 MCHC 34.2 g/dL ()?? 03/13/2022 07:08 Platelet Count 284 k/mm3 ()?? 03/13/2022 07:08 RDW-SD 41.4 femtoliters ()?? 03/13/2022 07:08 MPV 9.5 femtoliters ()?? 03/13/2022 07:08 Nucleated RBC (Automated) 0.0 #/100 WBC'S ()?? 03/13/2022 07:08 Abs. NRBC 0.0 k/mm3 ()?? 03/13/2022 07:08 Abs. Neut 8.4 k/mm3 (High)?? 03/11/2022 17:54 Abs. Lymph 1.6 k/mm3 ()?? 03/11/2022 17:54 Abs. Addison 1.3 k/mm3 ()?? 03/11/2022 17:54 Abs. Eo 0.1 k/mm3 ()?? 03/11/2022 17:54 Abs. Baso 0.0 k/mm3 ()?? 03/11/2022 17:54 Neut % 73.3 % ()?? 03/11/2022 17:54 Lymph % 13.5 % (Low)?? 03/11/2022 17:54 Addison % 11.7 % (High)?? 03/11/2022 17:54 Eos % 0.9 % ()?? 03/11/2022 17:54 Baso % 0.3 % ()?? 03/11/2022 17:54 Imm Gran 0.3 % ()?? 03/11/2022 17:54 Abs. Imm Gran 0.0 k/mm3 ()?? 03/11/2022 17:54 ?? CHEM GENERAL Sodium 137 mmol/L ()?? 03/12/2022 01:53 Potassium 4.1 mmol/L ()?? 03/12/2022 01:53 Chloride 99 mmol/L ()?? 03/12/2022 01:53 Bicarbonate Level 28 mmol/L ()?? 03/12/2022 01:53 Anion Gap 10 ()?? 03/12/2022 01:53 Glucose Level 93 mg/dL ()?? 03/12/2022 01:53 BUN 7 mg/dL ()?? 03/12/2022 01:53 Creatinine-Blood 0.9 mg/dL ()?? 03/12/2022 01:53 Estimated GFR Creatinine 121 ML/MIN/1.73 M2 ()?? 03/12/2022 01:53 Calcium 9.9 mg/dL ()?? 03/11/2022 17:54 Magnesium 1.8 mg/dL ()?? 03/12/2022 01:53 Protein, Total 7.7 Gm/dL ()?? 03/11/2022 17:54 Albumin 4.5 Gm/dL ()?? 03/11/2022 17:54 Alkaline Phosphatase 79 units/L ()?? 03/11/2022 17:54 AST (SGOT) 10 units/L ()?? 03/11/2022 17:54 ALT (SGPT) 9 units/L ()?? 03/11/2022 17:54 Bilirubin, Total 0.6 mg/dL ()?? 03/11/2022 17:54 Bilirubin, Direct <0.2 mg/dL ()?? 03/11/2022 17:54 Bilirubin, Indirect Direct bilirubin is less than the measureable limit. Therefore, indirect mg/dL ()?? 03/11/2022 17:54 Lactate 1.1 mmol/L ()?? 03/11/2022 17:29 C-Reactive Protein 8.1 mg/dL (High)?? 03/11/2022 17:54 ? HEME OTHER Sed Rate 61 mm/hr (High)?? 03/11/2022 17:54 ? TOXICOLOGY/TDM Cocaine Metabolite Screen, Urine NONE DETECTED ()?? 03/11/2022 18:19 Opiate Screen, Urine NONE DETECTED ()?? 03/11/2022 18:19 ?? UA/URINALYSIS Appear/Color, Urine YELLOW ()?? 03/11/2022 18:19 Specific [place], Urine 1.021 ()?? 03/11/2022 18:19 pH, Urine 6.5 ()?? 03/11/2022 18:19 Albumin, Urine 1+ (Abnormal)?? 03/11/2022 18:19 Glucose, Urine NEGATIVE ()?? 03/11/2022 18:19 Ketones, Urine 1+ (Abnormal)?? 03/11/2022 18:19 Bilirubin, Urine NEGATIVE ()?? 03/11/2022 18:19 Hemoglobin, Urine NEGATIVE ()?? 03/11/2022 18:19 Nitrite, Urine NEGATIVE ()?? 03/11/2022 18:19 Leukocyte, Urine NEGATIVE ()?? 03/11/2022 18:19 Urobilinogen 4 mg/dL (Abnormal)?? 03/11/2022 18:19 WBC's, Urine 1 /HPF ()?? 03/11/2022 18:19 RBC's, Urine NONE SEEN /HPF ()?? 03/11/2022 18:19 Bacteria SLIGHT HPF (Abnormal)?? 03/11/2022 18:19 Squamous Epith <1 /HPF ()?? 03/11/2022 18:19 Mucus SLIGHT /LPF ()?? 03/11/2022 18:19 Hold Urine Culture Testing available 48 hours from time of collection. ()?? 03/11/2022 18:19 ? VIROLOGY COVID-19 by RT-PCR NEGATIVE ()?? 03/11/2022 20:36 ? 25_ minutes spent on discharge * Cecile Manzo RN: PERFORM, SIGN, VERIFY Event Display: Case Management Discharge Plan Authored Date: Patient: SARA TAYLOR Age: 31 years Sex: Male : 1990 Associated Diagnoses: None Author: Cecile Manzo RN Discharge Plan Case Management Discharge Plan : Case Management Discharge Plan Data 03/14/2022 16:38 EST Discharge Level of Care at Discharge Homehealth/VNA Discharge VNA/Hospice/Home Care [facility] Home [facility] & H[facility]ice Name of Agency #1 [facility] Home Health Service Categories #1 [facility] Service Comments #1 You will be discharged today with [facility] - prison. A nurse will call to arrange a visit, please call [phone] with questions or concerns * Angelito Fitzpatrick RN: PERFORM Event Display: Patient Education/Instruction Authored Date: [id number] Inpatient Adult Discharge Instructions [address] [address] Name: SARA TAYLOR : 1990 Visit: 03/11/2022 20:47:00 Current Date: 03/14/2022 16:51 Account: [id number] Inpatient Adult Discharge Instructions We would like to thank you for allowing us to assist you with your healthcare needs. The following includes patient education materials and information regarding your injury/illness. Our entire staffstrives to provide an excellent experience for our patients and their families. PLEASE ENSURE YOU FOLLOW-UP PER THE INSTRUCTIONS BELOW! ?? YOUR OPINION IS IMPORTANT TO US! Please complete the survey you may receive by mail or email. Your feedback will be used to make improvements to the healthcare experiences of our patients and their families. Surveys are administered by [facility]. ?? If further treatment with your primary care physician or another doctor is recommended, it is important for you to keep the appointment. Call your primary care physician or return to the Emergency Department immediately if your condition worsens, fails to improve, or new symptoms develop. If you need to find a doctor, you can call [facility] [employer] for a referral at [phone] or toll free at [phone] or log in to [email or web address] ?? You can view and manage your care through the patient portal or by using a health care oliver of your choosing. [employer] is a website that allows you to securely view your medical information including your hospital discharge summary, office visit summaries, medications and follow-up visits. You can also request appointments, renew medications, and request access to your medical information using a health care oliver of your choosing, or just ask a question. You can enroll at [email or web address] or register during your next office visit. You have been discharged from [facility], Patient Care Unit: D3B. If you have any questions regarding these instructions after you leave, please call us and we will be happy to assist you. [facility] Your Care Team Attending Physician Raffaele ARRIETA, Katiana Hanson Consulting Providers Shellie Raymond MD; Tamara Dominguez MD, DMD, Max Discharging Providers Raffaele ARRIETA, Katiana Hanson Reason for Admission Facial pain and swelling Your Diagnosis Facial abscess Tests Performed Below is a partial list of the tests performed during your hospitalization. You may have had other tests and procedures not included in this list. Please discuss all test results with your provider. Basic Metabolic Panel BUN CBC CBC w/ Differential Cocaine Urine Screen COVID-19 (Novel Coronavirus), Rapid PCR Creatinine CRP Electrolytes ESR Glucose Level Hepatic Function Panel Lactate Level Magnesium Level Opiate Screen Urine Urinalysis w/hold for Urine Culture Soft Tissue Neck CT W/ Contrast Primary Care Provider Daniel ARRIETA, Ino Emmanuel Advance Directive Health Care Proxy on File Yes - Health Care Proxy No qualifying data available. Discharge Vitals Temperature: 97.6 DegF Height: 175 cm Pulse Rate: 70 bpm Weight: 79 kg Respiratory Rate: 18 br/min Body Mass Index:??25.8 kg/m2??High Systolic Blood Pressure: 126 mm Hg Body surface area: 1.96 Diastolic Blood Pressure: 80 mm Hg ?? Oxygen Saturation: 98 % ?? Studies Pending All tests and labs ordered during this hospital stay have been completed unless listed below. Please discuss all pending results with your provider listed above in these instructions. ?? Blood Culture Blood Culture #2 COVID-19 (2019 Novel Coronavirus) PCR Fungal Culture, Nonrespiratory (FUNGAL CULT,NON-RESPIRATORY) Pathology Tissue Request () What to do next Instructions From Your Doctor Discharge Orders Discharge Medications SARA TAYLOR :1990 Visit Date:03/11/2022 Medications: Please continue your medications until treatment is completed or stopped by your provider. Medications not listed below should be discontinued. Discuss any questions related to medications with your provider. What How Much When Instructions Next Dose New Amoxicillin-Clavulanate (Augmentin 875 mg-125 mg oraltablet) 1 tab(s) Oral Every 12 hours Duration: 42 Days Pickup at [facility]/pharmacy #[id number] 9pm tonight New Oxycodone / Acetaminophen (Percocet 2.5 mg-325 mg oral tablet) 2 tab(s) Oral Every 6 hours as needed for as needed for pain Printed Prescription anytime as needed Unchanged Duloxetine (duloxetine 60 mg oral enteric coated capsule) 1 capsule Oral Daily tomorrow, resume home schedule Unchanged Gabapentin (gabapentin 400 mg oral capsule) Unchanged Gabapentin (gabapentin 600 mg oral tablet) Unchanged HydrOXYzine (hydrOXYzine hydrochloride 50 mg oral tablet) 1 tab(s) Oral 3 times a day as needed for for anxiety as??needed Unchanged Risperidone (risperiDONE 1 mg oral tablet) 1 tab(s) Oral Daily tomorrow, resume home schedule Pharmacy Information [id number]: [address], [place] [id number] [phone] Test Results Below is a partial list of the most recent Laboratory test results done prior to this discharge. You may have had other tests and procedures not included in this list. Please discuss all test resultswith your provider. Basic Metabolic Panel (03/11/2022) ???Sodium - 139 mmol/L???Potassium - 4.5 mmol/L???Chloride - 98 mmol/L???Bicarbonate Level - 29 mmol/L???Anion Gap - 12???Glucose Level - 94 mg/dL???BUN - 10 mg/dL???Creatinine-Blood - 0.9 mg/dL???Estimated GFR Creatinine - 119 ML/MIN/1.73 M2???Calcium - 9.9 mg/dL BUN (03/12/2022) ???BUN - 7 mg/dL CBC (03/13/2022) ???WBC - 9.7 k/mm3???RBC - 3.94 m/mm3???Hgb - 11.9 Gm/dL???Hct - 34.8 %???MCV - 88.3 femtoliters???MCH - 30.2 pg???MCHC - 34.2 g/dL???Platelet Count - 284 k/mm3???RDW-SD - 41.4 femtoliters???MPV - 9.5 femtoliters???Nucleated RBC (Automated) - 0.0 #/100 WBC'S???Abs. NRBC - 0.0 k/mm3 CBC w/ Differential (03/11/2022) ???WBC - 11.5 k/mm3???RBC - 4.35 m/mm3???Hgb - 13.4 Gm/dL???Hct - 39.0 %???MCV - 89.7 femtoliters???MCH - 30.8 pg???MCHC - 34.4 g/dL???Platelet Count - 289 k/mm3???RDW-SD - 43.6 femtoliters???MPV - 9.3 femtoliters???Nucleated RBC (Automated) - 0.0 #/100 WBC'S???Abs. NRBC - 0.0 k/mm3???Abs. Neut - 8.4 k/mm3???Abs. Lymph - 1.6 k/mm3???Abs. Addison - 1.3 k/mm3???Abs. Eo - 0.1 k/mm3???Abs. Baso - 0.0 k/mm3???Neut % - 73.3 %???Lymph % - 13.5 %???Addison % - 11.7 %???Eos % - 0.9 %???Baso % - 0.3 %???Imm Gran - 0.3 %???Abs. Imm Gran - 0.0 k/mm3 Cocaine Urine Screen (03/11/2022) ???Cocaine Metabolite Screen, Urine - NONE DETECTED COVID-19 (Novel Coronavirus), Rapid PCR (03/11/2022) ???COVID-19 by RT-PCR - NEGATIVE Creatinine (03/12/2022) ???Creatinine-Blood - 0.9 mg/dL???Estimated GFR Creatinine - 121 ML/MIN/1.73 M2 CRP (03/11/2022) ???C-Reactive Protein - 8.1 mg/dL Electrolytes (03/12/2022) ???Sodium - 137 mmol/L???Potassium - 4.1 mmol/L???Chloride - 99 mmol/L???Bicarbonate Level - 28 mmol/L???Anion Gap - 10 ESR (03/11/2022) ???Sed Rate - 61 mm/hr Glucose Level (03/12/2022) ???Glucose Level - 93 mg/dL Hepatic Function Panel (03/11/2022) ???Protein, Total - 7.7 Gm/dL???Albumin - 4.5 Gm/dL???Alkaline Phosphatase - 79 units/L???AST (SGOT) - 10 units/L? ?ALT (SGPT) - 9 units/L? ?Bilirubin, Total - 0.6 mg/dL? ?Bilirubin, Direct - <0.2mg/dL???Bilirubin, Indirect - Direct bilirubin is less than the measureable limit. Therefore, indirect Lactate Level (03/11/2022) ???Lactate - 1.1 mmol/L Magnesium Level (03/12/2022) ???Magnesium - 1.8 mg/dL Opiate Screen Urine (03/11/2022) ???Opiate Screen, Urine - NONE DETECTED Urinalysis w/hold for Urine Culture (03/11/2022) ???Appear/Color, Urine - YELLOW???Specific [place], Urine - 1.021???pH, Urine - 6.5???Albumin, Urine - 1+???Glucose, Urine - NEGATIVE???Ketones, Urine - 1+???Bilirubin, Urine - NEGATIVE???Hemoglobin,Urine - NEGATIVE???Nitrite, Urine - NEGATIVE???Leukocyte, Urine - NEGATIVE???Urobilinogen - 4 mg/dL? ?WBC's, Urine - 1 /HPF? ?RBC's, Urine - NONE SEEN? ?Bacteria - SLIGHT? ?Squamous Epith - <1 /HPF???Mucus - SLIGHT???Hold Urine Culture - Testing available 48 hours from time of collection. Immunizations This Visit Not Given Vaccine Commentsinfluenza virus vaccine, inactivated Patient Refuses Allergies (NKA means No Known Allergies) NKA Problems No qualifying data available Education Materials Below is the list of Educational Leaflet Providered with your Discharge Instructions. Abscess (Incision & Drainage)?? Valuables and Belongings I fully understand and agree that [facility] accepts no responsibility for all my personal property including clothing, toilet articles, radios, jewelry, dentures, hearing aids, rings, money, or any other property that is in my possession or is brought to me after admission. I understand certain valuables may be placed in a hospital safe for a short period of time. I understand that the hospital is not liable for loss or damage due to accident, fire, or other natural occurrence while said property is in the safe. I accept full responsibility for any personal property that I keep with me, and will not hold the hospital responsible in case of loss or disappearance. I acknowledge that i have been encouraged to send valuables and belongings home. ?? Review of Valuable and Belonging List: With patient Possessions released to: no valuables in pre op Date for Pt to Sign Valuables/Belongings: 03/12/22 07:42:00 ?? Valuables & Belongings ?? Clothes Electronic devices Jewelry Monetary Items Personal devices Miscellaneous Medications (Valuables) Valuables at Bedside Jacket, Pants, Shirt, Shoes, Undergarments Cell phone, Other: kelp gatherer ? Valuables Sent Home ? Valuables Sent to Security ? Other Discharge Information ?? Wound Assessment?? Wound Assessment?? Wound Location I: lower jaw sharon drain ?? Case Management Discharge Plan?? Discharge Plan?? Discharge Agency Information?? Discharge Level of Care at Discharge: Homehealth/VNA Name of Agency #1: [facility] Home Health Discharge VNA/Hospice/Home Care: [facility] Health [facility] H[facility] Service Categories #1: [facility] ?? Service Comments #1: You will be discharged today with [facility] - prison. ??A nurse will call to arrange a visit, please call [phone] with questions or concerns ?? Pulmonary Rehab Status?? Pulmonary Rehab Discharge Status?? Respiratory Rate: 18 br/min ? Common Emergency Awareness Tips IS IT A STROKE? Act FAST and Check for these signs: FACE Does the face look uneven? ARM Does one arm drift down? SPEECH Does their speech sound strange? TIME Call at any sign of stroke ?? Heart Attack Signs Chest discomfort: Most heart attacks involve discomfort in the center of the chest and lasts more than a few minutes, or goes away and comes back. It can feel like uncomfortable pressure, squeezing, fullness or pain. Discomfort in upper body: Symptoms can include pain or discomfort in one or both arms, back, neck, jaw or stomach. Shortness of breath: With or without discomfort. Other signs: Breaking out in a cold sweat, nausea, or lightheaded. Remember, MINUTES DO MATTER. If you experience any of these heart attack warning signs, call to get immediate medical attention! ?? Smoking can increase your chances of developing chronic health problems and can cause harmful effects to other family members in your house. If you smoke, you are strongly encouraged to quit. Please call [facility] [employer] at [phone] or [phone] ([phone]) or log in to [email or web address] for referrals to smoking cessation programs. ?? The National Suicide Prevention Hotline is available 05/09 if you or someone you know needs to find a reason to keep living. By calling 8-829-010-[employer] (4618) you'll be connected to a skilled, trained counselor at a crisis center in your area. INPATIENT DISCHARGE INSTRUCTIONS SIGNATURE PAGE SARA TAYLOR Location:[facility] Registration Date and Time:03/11/2022 20:47 EST Primary Care Physician: Daniel ARRIETA, Ino Emmanuel, I CLAUDIA CORNELL, have received the above patient education materials/instructions and have verbalized understanding. If ambulance or transport services are being used I further acknowledge being given a choice of service. ?? If you need to contact me, please call me at this number: . Patient/Still Operator Helper Name: Patient/Still Operator Helper Signature: Relationship to Patient: Witness Name/Signature: Date: * Fitzpatrick Angelito CABALLERO: PERFORM Event Display: Patient Education Leaflets Authored Date: [id number] Oxycodone Oral Tablet ?? [id number] Oxycodone Oral Tablet Brands: Roxicodone Uses For pain. ?? Instructions This medicine may be taken with or without food. Swallow with a full glass (8 oz) of water unless your doctor gives you different instructions. Store at room temperature away from heat, light, and moisture. Do not keep in the bathroom. Please ask your doctor, nurse, or pharmacist how to discard unused medicines safely. To reduce constipation, eat high fiber foods, drink plenty of water and exercise. Avoid grapefruit juice while on this medicine. Drug interactions can change how medicines work or increase risk for side effects. Tell your healthcare providers about all medicines taken. Include prescription and fasn-iet-peofiqv medicines, vitamins, and herbal medicines. Speak with your doctor or pharmacist before starting or stopping any medicine. Tell your doctor if symptoms do not get better or if they get worse. ?? Cautions This medicine has an opioid. Opioids help many people but may cause addiction, especially if used for a long time. The addiction risk is higher if you have a substance use disorder (overuse of or addiction to drugs or alcohol). Ask your doctor about the benefits and risks. Ask your doctor or pharmacist if you should have naloxone on hand to treat opioid overdose. Teach your family or household members about the signs of an opioid overdose and how to treat it. If you stop this medicine suddenly, after using it regularly for a long time, you may have withdrawal symptoms. Your doctor may ask you to slowly reduce your dose before stopping it. Tell your doctorright away if you notice any symptoms of withdrawal. Withdrawal symptoms can include unusual sweating, watering eyes, runny nose, chills, stomach pain, diarrhea, yawning, muscle aches, irritability, restlessness, anxiety, trouble sleeping, or thoughts of suicide. Tell your doctor and pharmacist if you ever had an allergic reaction to a medicine. Do not use the medication any more than instructed. This medicine may cause dizziness or fainting, especially after exercising or in hot weather. Be very careful when standing or sitting up quickly. If possible, avoid using with marijuana or other medicines that can cause dizziness or drowsiness. These include allergy/cold products, muscle relaxers, sleep aids, and pain relievers. Your ability to stay alert or to react quickly may be impaired by this medicine. Do not drive or operate machinery until you know how this medicine will affect you. Do not drink beverages with alcohol while on this medicine. This medicine passes into breast milk. Ask your doctor before . This medicine can hurt a new baby in the womb. If you become while on this medicine, tell your doctor immediately. Your doctor may switch you to a different medicine. This medicine should be used with caution in patients with breathing difficulties. Call your doctor right away if you notice slow or shallow breathing. Do not share this medicine with anyone who has not been prescribed this medicine. Some patients have serious side effects from this medicine. Ask your pharmacist to show you the information from the Food and Drug Administration (FDA) and discuss it with you. ?? Side Effects The following is a list of some common side effects from this medicine. Please speak with your doctor about what you should do if you experience these or other side effects. ??? decreased appetite ??? constipation ??? dizziness or drowsiness ??? lightheadedness ??? nausea and vomiting If you have any of the following side effects, you may be getting too much medicine. Please contactyour doctor to let them know about these side effects. ??? confusion ??? fainting ??? unusual or unexplained tiredness or weakness ??? difficulty or discomfort urinating Call your doctor or get medical help right away if you notice any of these more serious side effects: ??? agitated feeling or trouble sleeping ??? decreased awareness or responsiveness ??? breathing interruption during sleep ??? shallow, irregular breathing ??? hallucinations (unusual thoughts, seeing or hearing things that are not real) ??? seizures ??? severe stomach or bowel pain ??? weight loss A few people may have an allergic reaction to this medicine. Symptoms can include difficulty breathing, skin rash, itching, swelling, or severe dizziness. If you notice any of these symptoms, seek medical help quickly. ?? Extra Please speak with your doctor, nurse, or pharmacist if you have any questions about this medicine. ?? [email or web address] IMPORTANT NOTE: This document tells you briefly how to take your medicine, but it does not tell youall there is to know about it. Your doctor or pharmacist may give you other documents about your medicine. Please talk to them if you have any questions. Always follow their advice. There is a more complete description of this medicine available in [place]. Scan this code on your smartphone or tablet or use the web address below. You can also ask your pharmacist for a printout. If you have any questions, please ask your pharmacist. The display and use of this drug information is subject to Terms of Use. Copyright(c) 2021 [employer]. ?? The [employer]. All rights reserved. This information is not intended as a substitute for professional medical care. Always follow your healthcare professional's instructions. ?? * Angelito Fitzpatrick RN: PERFORM Event Display: Patient Education Leaflets Authored Date: [id number] Amoxicillin Oral Tablet ?? [id number] Amoxicillin Oral Tablet Uses For treating bacterial infection. ?? Instructions This medicine may be taken with or without food. Keep the medicine at room temperature. Avoid heat and direct light. It is important that you keep taking each dose of this medicine on time even if you are feeling well. If you forget to take a dose on time, take it as soon as you remember. If it is almost time for thenext dose, do not take the missed dose. Return to your normal schedule. Do not take 2 doses at one time. Tell your doctor and pharmacist about all your medicines. Include prescription and zznt-kym-ydpuhfxsmleidelv, vitamins, and herbal medicines. Keep using this medicine for the full number of days that it is prescribed. Do not stop the medicine even if you start to feel better. If you have diabetes and use urine glucose tests, this medicine may cause incorrect results. Pleasecheck with your doctor before making any changes to your diabetes treatment plan. ?? Cautions Tell your doctor and pharmacist if you ever had an allergic reaction to a medicine. Do not use the medication any more than instructed. Please tell your doctor if you have moderate to severe diarrhea while on this medicine. Do not treat the diarrhea with xmir-edh-qhdutjt diarrhea medicine. Tell the doctor or pharmacist if you are , planning to be , or . Do not start or stop any other medicines without first speaking to your doctor or pharmacist. Do not share this medicine with anyone who has not been prescribed this medicine. ?? Side Effects The following is a list of some common side effects from this medicine. Please speak with your doctor about what you should do if you experience these or other side effects. ??? diarrhea ??? mouth sores or irritation ??? nausea and vomiting ??? stomach upset or abdominal pain Call your doctor or get medical help right away if you notice any of these more serious side effects: ??? severe or persistent abdominal pain ??? severe, watery or bloody diarrhea ??? signs of liver damage (such as yellowing of eye or skin, dark urine, or unusual tiredness) ??? red, burning, or itchyskin ??? yeast infection of mouth ??? vaginal itching or discharge A few people may have an allergic reaction to this medicine. Symptoms can include difficulty breathing, skin rash, itching, swelling, or severe dizziness. If you notice any of these symptoms, seek medical help quickly. ?? Extra Please speak with your doctor, nurse, or pharmacist if you have any questions about this medicine. ?? [email or web address] [place]/V2.0/fdbpem/3295 IMPORTANT NOTE: This document tells you briefly how to take your medicine, but it does not tell youall there is to know about it. Your doctor or pharmacist may give you other documents about your medicine. Please talk to them if you have any questions. Always follow their advice. There is a more complete description of this medicine available in [place]. Scan this code on your smartphone or tablet or use the web address below. You can also ask your pharmacist for a printout. If you have any questions, please ask your pharmacist. The display and use of this drug information is subject to Terms of Use. Copyright(c) 2021 [employer]. ?? [employer]. All rights reserved. This information is not intended as a substitute for professional medical care. Always follow your healthcare professional's instructions. ?? * Angelito Fitzpatrick RN: PERFORM Event Display: Patient Education Leaflets Authored Date: [id number] Abscess (Incision &&Drainage) ?? [id number] Abscess (Incision &&Drainage) An abscess is sometimes called a boil. It happens when bacteria get trapped under the skin and start to grow. Pus forms inside the abscess as the body responds to the bacteria. An abscess can happen with an insect bite, ingrown hair, blocked oil gland, pimple, cyst, or puncture wound. Your healthcare provider has drained the pus from your abscess. If the abscess pocket was large, your provider may have put in gauze packing. Your provider will need to remove or replace it on your next visit. Antibiotics may have been prescribed if the infection is spreading around the wound. But you may not need them to treat a simple abscess. The wound??will take about 1 to 2 weeks to heal, depending on the size of the abscess. Healthy tissue will grow from the bottom and sides of the opening until it seals over. Home care These tips can help your wound heal: ??? The wound may drain for the first 2 days. Cover the wound with a clean dry dressing. Change the??dressing if it becomes soaked with blood or pus. ??? If a gauze packing was placed inside the abscess pocket, you may be told to remove it yourself. You may do this in the shower. Once the packing is removed, you should wash the area in the shower, or clean thearea as directed by your healthcare provider. Continue to do this until the skin opening has closed. Carefully throw away the packing to prevent spreading any infection. Make sure you wash your handsafter changing the packing or cleaning the wound. ??? If you were prescribed antibiotics, take themas directed until they are all gone. ??? You may use acetaminophen or ibuprofen to control pain, unless another pain medicine was prescribed.??If you have liver disease or ever had a stomach ulcer, talk with your healthcare provider before using these medicines. ?? Follow-up care Follow up with your healthcare provider, or as advised. If a gauze packing was put in your wound, it should be removed in 1 to 2 days, or as directed. Check your wound every day for any signs that the infection is getting worse. The signs are listed below. ?? When to get medical advice Call your healthcare provider right away if any of these occur: ??? Increasing redness or swelling ??? Red streaks in the skin leading away from the wound ??? Increasing local pain or swelling ??? Continued pus draining from the wound 2 days after treatment ??? Fever of 100.4??F (38??C) or higher, or as directed by your provider ??? Boil returns after treatment ?? Last Reviewed Date: 2021 ?? [id number] [employer]. All rights reserved. This information is not intended as a substitute for professional medical care. Always follow your healthcare professional's instructions. ?? CT Neck W contrast IV * BHSPowerscrifreida , CIS S: TRANSCRIFREIDA Tran MD, Dayanara Leach: VERIFY Event Display: Result: Authored Date: [id number] CT Soft Tissue Neck W/ Contrast INDICATION/CLINICAL QUESTION: Hx of Present Illness: pt c o lower jaw dental pain for two weeks, worsening now, c o pain radiating down jaw, large red swollen bump, c o dental pain, difficulty swallowing. managing own airway, no drooling.; Reason: Abscess Inflammation; facial abscess; Clinical Question(s): Abscess; Order Comment: / Abscess. TECHNIQUE: Spiral CT neck with IV contrast formatted in 3 planes. 100 cc of Omnipaque 300 was administered intravenously. Weight-based protocol using automatic tube modulation was used to optimize exposure parameters. CTDIvol Body: 10.70 mGy, DLP Body: 412 mGy*cm. COMPARISON: None. FINDINGS: Director Of Real Estate View Findings, Lines and Tubes: None. Intracranial structures: Visualized portions are unremarkable. Orbits: Visualized portions are unremarkable. Paranasal sinuses and mastoids: Visualized portions are clear. Mucosal surfaces: Mucosal surfaces appear normal and symmetric, including the pharynx, larynx, and visualized portions of the upper trachea and esophagus. Superficial and deep neck spaces: A peripherally enhancing fluid collection is present inferior to the right anterior mandible in the right submandibular region and overlying subcutaneous fat. This measures 4.3 x 2.9 x 2.1 cm. This is contiguous with abnormal lucency in the right mandible describedbelow. There is extensive surrounding inflammatory fat stranding in the superficial subcutaneous fat of the upper neck as well as the adjacent submandibular regions. There is minimal asymmetric edemain the right floor of mouth, but intrinsic tongue muscles are preserved and there is no extension of the abscess into the floor of mouth. Other deep neck spaces, including retropharyngeal space, consumer insight manager space, and potential spaces, are preserved. Cervical lymph nodes: Multiple enlarged upper cervical lymph nodes, likely reactive, greatest at level 1 and 2, right greater than left. The largest node on the right at level 1B measures 2.1 x 1.2 cm Salivary glands: The parotid glands and submandibular glands are normal. Thyroid gland: Normal CT appearance Vascular structures: Unremarkable. No thrombosis or stenosis of the major cervical arteries. Upper chest: The upper lungs are clear. The upper mediastinum is unremarkable. Bones and teeth: Large dental caries/erosion of the right mandibular second molar ADA 31 is associated with prominent periapical lucency. Smaller dental caries of the right mandibular first molar ADA30 is also present. There is contiguous linear lucency extending between the roots of ADA 30 and ADA 31, with a free osseous fragment at the buccal superficial margin of the right mandible suggestiveof a small fracture due to undermining of the bone. A linear lucency extends anteriorly from these 2 molars into the right anterior mandible. Small island of density within this area of lucency suggests presence of a small sequestrum (201:45). Abnormal lucency tracks inferiorly and medially with ero franklin of the inferior and inner cortex of the right anterior mandible (201:46). Multiple additional dental caries are present within multiple bilateral maxillary and mandibular teeth, some of which are associated with additional smaller periapical lucencies. IMPRESSION: 1. 4.3 cm right submandibular soft tissue abscess related to odontogenic infection. 2. Extensive lucency in the right mandible related to large dental caries of the right mandibular first and second molars (ADA 30-31), with fragmentation/fracture of the small segment of the lateral cortex, and erosion and sequestrum in the more anterior and medial mandible, findings suggestive of chronic osteomyelitis This critical result was discussed with Dr. Oksana Roberson TUGBOAT ENGINEER on 03/11/2022 7:14 PM and it was ascertained that the content and urgency of the report was understood at the time of direct communication. WSN: [id number] Ordering Physician: Oksana Roberson Dictated By: Dayanara Tran MD Dictated Date/Time: 03/11/22 7:16 pm Reviewed By: Dayanara Tran MD Signed By: Dayanara Tran MD Signed Date/Time: 03/11/22 7:16 pm Transcribed By: YINKA Transcribed Date/Time: 03/11/22 6:55 pm Patient Care team information Care Team Personnel Name: Ashwini Good RN Position: [facility] RN Member Role: Primary Care Nurse Name: Daniel ARRIETA, Ino Emmanuel Position: Reference Physician Member Role: PCP Address: Address: [address] [place] [address], [address] [place] [address]- Name: *CHIOMA, Inblanca Attending Position: [facility] ED Medicine MD Name: Za Jackson Position: [facility] ED TA [facility] Member Role: Cube Cutter Name: Margret Reagan RN Position: [facility] ED RN W/OE and Tasks Member Role: Patient Care Provider Name: Oksana Roberson NP Position: [facility] Associate Professional Member Role: ED Physician Lime Plant Operator Address: Address: [address] [place] [address] [place] [address]-
--- OUTSIDE RECORDS SUMMARY | 2022-11-25 23:55 | XMS_ITS | Continuity of Care Document ---
Author Name Unknown Organization [facility] Address [address] [place] [id number]- Care Team Providers Care Machine Shop Supervisor Name Role Phone Ino Sanchez MD Primary Care Physician [phone] Encounter [facility] [place] Date(s): 03/15/22 - 05/08/22 [facility] [address] [place] [id number] Attending Physician: Shellie Raymond MD Admitting Physician: Shellie Raymond MD Referring Physician: nIo Sanchez MD Allergies, Adverse Reactions, Alerts No Known [...] Reference Physician Member Role: PCP Address: Address: [address] [place] [address], [address] [place] [address]- Care Team Related Persons Name: NISHANT JEAN BAPTISTE Address: home [address] [place] [address]
[2022-11-26] VITALS (8 sets, daily range): BP systolic 86–99; BP diastolic 41–58; PULSE 52–81; RESP 15–18; O2SAT 97–98
[2022-11-26] LABS: Alanine Aminotransferase 20 U/L (0-40); Alkaline Phosphatase 74 U/L (39-117); Anion Gap 15 (12-20); Aspartate Amino Transferase 18 U/L (5-37); Bilirubin Total 0.1 mg/dL (0.0-1.0); Blood Urea Nitrogen 8 mg/dL (9-16); Calcium 9.4 mg/dL (8.4-10.2); Carbon Dioxide 29 mmol/L (22-29); Chloride 99 mmol/L (96-108); Creatinine Clr Calc Pharmacy 136.1; Estimated Glomerular Filt Rate > 60; Ethanol < 10 mg/dL; Glucose Random 92 mg/dL (60-115); Lipase 53 U/L (8-78); Potassium 4.1 mmol/L (3.3-5.1); Sodium 139 mmol/L (135-145); Total Protein 7.4 g/dL (6.5-8.0)
[2022-11-26] MEDS: Metoclopramide HCl 10 MG/2 ML VIAL IVPUSH (00:03)
[2022-11-26] MEDS: diphenhydrAMINE HCL 50 MG/ML VIAL IVPUSH (00:03)
--- NOTE | 2022-11-26 00:04 | PC.NURSE ---
pt medicated perb mar. ivf infusing.
[2022-11-26 00:13] LABS: Troponin-I High Sensitivity < 2.7 ng/L (<3.5-35.0)
[2022-11-26] MEDS: 0.9 % Sodium Chloride 1,000 ML 999 ML IV (01:47)
--- NOTE | 2022-11-26 01:48 | PC.NURSE ---
pt bp 86/41; upon repositioning pt bp 91/50. Dr. Jones notified. DEBBY hung per order.
--- NOTE | 2022-11-26 03:34 | PC.NURSE ---
pt given food/drinks per provider request. pt tolerated well denies n/v at this time.
== END 2022-11-26 05:01 | disposition home or self-care (01) ==
PROVIDERS: Emergency Provider Emergency Medicine Emergency Medical Services
DX: R55 Syncope and collapse (principal); S09.90XA Unspecified injury of head, initial encounter; W18.30XA Fall on same level, unspecified, initial encounter; F12.90 Cannabis use, unspecified, uncomplicated; Y93.89 Activity, other specified; Y92.9 Unspecified place or not applicable; Y99.9 Unspecified external cause status
CPT/HCPCS: 36415; 70450; 72125; 80053; 80307; 83690; 84484; 85025; 85610; 85730; 93005; 96361; 96374; 96375; 99285; J1200; J2765

== ENCOUNTER 2024-09-03 15:17 | Emergency (ER) | payer OTHER, SELFPAY ==
[2024-09-03 15:23] VITALS: BP 107/69; BP 96/64; PULSE 83; PULSE 88; RESP 16; TEMP 36.8; O2SAT 99; BMI 24.4
--- NOTE | 2024-09-03 15:29 | ED.GENADULT ---
HPI - General Adult General Chief complaint: Skin/Abscess/Foreign Body Stated complaint: skin condition Time Seen by Provider: 09/03/24 16:37 History of Present Illness ED Provider: Jaswant Osborn MD HPI narrative: 33-year-old male who is chronically on domicile he does have a PCP in the [facility] system I do not have access to their records currently. He tells me he has had a chronic diffuse rash mostly on the dorsum of the extremities from several months as far back as at least April and May. He thinks in May he saw his PCP who put him on antifungal medications which he took but ran out and was never seen for this again. He denies any drugs or alcohol he says he has been on risperidone without dose change and no other medications since that time. He is exposed to the elements regularly but does not personally think this is a sunburn. Denies any other medical history denies fever or chills chest pain difficulty breathing any lesions within the mouth tongue or difficulty swallowing or speaking. Related Data Previous Rx's ?Medication ?Instructions ?Recorded amoxicillin 500 mg tablet 500 mg PO Q8H #30 tabs 09/02/21 clindamycin HCl 300 mg capsule 300 mg PO QID 10 days #40 caps 03/10/22 clindamycin HCl 300 mg capsule 300 mg PO QID 10 days #40 caps 03/10/22 (Cleocin HCl) ibuprofen 600 mg tablet 600 mg PO Q6H PRN pain #20 tabs 03/10/22 ibuprofen 600 mg tablet 600 mg PO Q6H PRN pain #20 tabs 03/10/22 oxycodone 5 mg tablet 5 mg PO Q6H PRN pain #7 tabs 03/10/22 oxycodone 5 mg tablet 5 mg PO Q6H PRN pain #7 tabs 03/10/22 prednisone 20 mg tablet 20 mg PO DAILY 20 days #20 tabs 09/03/24 Allergies Allergy/AdvReac Type Severity Reaction Status Date / Time No Known Allergies Allergy Verified 09/03/24 15:26 [facility], [facility] Social History Social History Alcohol intake: current Alcohol intake frequency: holidays/special occasions only Alcohol type: hard liquor Substance Use Type: Marijuana Advance Directives: No Advance Directives Information Provided: No Physical Exam ED Exam Exam: EXAM: Gen: Alert, awake, slightly dry appearing. Slightly disheveled and unkempt. Head: Atraumatic Eyes: Anicteric, Normal conjunctiva. ENT: Moist mucosa, no pallor. ? Neck: Supple. Skin: Respiratory: Breathing comfortably, No distress.Clear to auscultation bilaterally, symmetric chest expansion, No wheeze, rales, ronchi. Cardiovascular: Regular rate and rhythm. No murmurs or rub. Well perfused periphery, warm extremities. No edema. ? Abdominal: No focal tenderness. Soft, no objective distension. No palpable masses or obvious organomegaly. ?No guarding, no rebound tenderness or other peritoneal findings. : No flank tenderness. Neuro: Alert. Gross movement of all extremities intact. ? Psych: Calm. Cooperative. MSK: No grossly visible deformity. Vital signs: See flowsheet Vital Signs: Vital Signs - 24 hr 09/03/24 15:23 09/03/24 16:09 09/03/24 17:42 Temperature 98.3 F 98.0 F 98.3 F Pulse Rate 83 64 68 Respiratory Rate 16 16 18 Blood Pressure 107/69 107/66 106/71 Pulse Oximetry 99 98 97 Oxygen Delivery Method Room Air Room Air Room Air 09/03/24 17:59 Temperature 98.3 F Pulse Rate 68 Respiratory Rate 18 Blood Pressure 106/71 Pulse Oximetry 97 Oxygen Delivery Method Room Air BMI result Body Mass Index 24.4 Course Course Course Narrative: RME: 73 year male presents ED for generalized itchy rash also painful for the past 4 months. Patient denies any fever or chills. Medical Decision Making Medical Decision Making [facility] Narrative: Medical Decision Makin-year-old male who reports several months of rash slightly worsening. Some of this particularly in the face and lip looks most consistent with sunburn. He has some scaling chronic appearing rash of the dorsum of the extremities and legs as well he is describing this is going on for months unresponsive to fungal medication. Patient has chronic mental illness and is intermittently on domicile. Poor hygiene. Poorly kempt. No clinical suggestion on exam of superinfection. This is nonspecific rash he has no clear exposures to new medications or change in medications to suggest SJS or MAGDALENO and although this was considered I find it extremely unlikely that this is cause of this. There was no intraoral mucosal lesions sloughing or rapid expansion given the time duration it is unlikely to be this. More like this is a nonspecific dermatitis of unclear cause at this time you may respond to steroid. He does have an appointment with Dermatology but I have asked him to call his PCP try to expedite this. Preliminary Favored Differential Diagnosis: Dermatitis, fungal infection, very unlikely to be ACS TM this was considered no suggestion of superinfection among additional considered etiologies Testing Interpreted Independently: Not Applicable Radiology or Lab testing Results Reviewed: Not Applicable Consults: Not Applicable Independent Historians/External Chart Reviews: Not Applicable Social Determinants of Health Impacting MDM/Planning: On domicile old poor hygiene unlikely to follow up closely outpatient due to social situation Discharge Plan Discharge Clinical Impression: Dermatitis Patient Disposition: Home, Self-Care Instructions: Dermatitis (ED) Additional Instructions: DISCHARGE DIAGNOSES: Skin rash of unclear cause, chronic. HISTORY OF PRESENTATION: ?Several months of skin rash with slow changes EMERGENCY DEPARTMENT COURSE,TESTS, TREATMENTS: While in the ED today no testing was done we started you on medications see below DISCHARGE MEDICATIONS: ?Steroid medications. Did not stop or change your risperidone. FOLLOW-UP: ?Call your primary or general physician soon as possible to discuss your symptoms, your ED visit and to discuss follow up plans Call your primary doctor to try to expedite your dermatology follow up that you already have scheduled INSTRUCTIONS ?& RETURN PRECAUTIONS: If any symptoms change first call your primary physician, if it is after-hours your primary doctors office should have a provider preschool paraprofessional you can speak with. If the symptoms are severe or very concerning to you then call 911 or return to the ED. Return for difficulty swallowing, chewing, severe worsening of your rash such as weeping or development of high fevers or pus coming from the wounds Jaswant Osborn MD Emergency Physician [facility] Prescriptions: New prednisone 20 mg tablet 20 mg PO DAILY 20 Days Qty: 20 0RF No Action clindamycin HCl 300 mg capsule 300 mg PO QID 10 Days Qty: 40 0RF oxycodone 5 mg tablet 5 mg PO Q6H PRN (Reason: pain) Qty: 7 0RF Rx Instructions: Partial Fill upon patient request. ibuprofen 600 mg tablet 600 mg PO Q6H PRN (Reason: pain) Qty: 20 0RF clindamycin HCl [Cleocin HCl] 300 mg capsule 300 mg PO QID 10 Days Qty: 40 0RF ibuprofen 600 mg tablet 600 mg PO Q6H PRN (Reason: pain) Qty: 20 0RF oxycodone 5 mg tablet 5 mg PO Q6H PRN (Reason: pain) Qty: 7 0RF Rx Instructions: Partial Fill upon patient request. amoxicillin 500 mg tablet 500 mg PO Q8H Qty: 30 0RF Interventions: ED Discharge Assessment Last Done: 09/03/24 17:59 Discharge Date/Time: 09/03/24 18:00 Print Language: Belgian
[2024-09-03 16:09] VITALS: BP 107/66; PULSE 64; RESP 16; TEMP 36.7; O2SAT 98
--- OUTSIDE RECORDS SUMMARY | 2024-09-03 16:44 | XMS_ITS | Clinical Summary ---
Author Organization [facility] [address] [place] [address] [place] [address] Phone Care Team Providers Care Sign Language Translator Name Role Phone Jorge Richards MD Primary Care Provider [phone] Allergies No known active allergies Medications DULOXETINE HCL, BULK, MISC Take by mouth. Active GABAPENTIN ORAL Take by mouth. Active risperiDONE (RisperDAL) 0.5 mg tablet Take 1 tablet (0.5 mg total) by mouth 2 (two) times a day. 60 each 5 05/14/2024 Active Active Problems Problem Noted Date Diagnosed Date Marijuana use 02/21/2017 Overview (02/11/2024): + UDS at [facility] Bipolar disorder ([facility] V24, [facility] V28) 07/14 Chronic bilateral low back pain without sciatica 08/01/2016 Schizophrenia ([facility] V24, [facility] V28) 017 Anxiety 08/26/2015 Insomnia 08/26/2015 Immunizations Name Administration Dates Next Due Influenza Quadravalent, MDCK , 0.5ml, preservative free (Flucelvax) 6mo and older 03/22/2022 Influenza trivalent, MDCK, 0 .5mL, preservative free (Flucelvax) 6mo and older 05/09/2024 Td Tetanus diptheria (Tdvax) 7yo and older 06/14 Tdap Tetanus diptheria acell ular pertussis (Boostrix; Adacel) 7yo and older 08/26/2015 Surgical History Surgery Date Site/Laterality Comments OTHER SURGICAL HISTORY PROCEDURE: DENIES PREVIOUS SURGERY Family History Relation Name Status Comments Brother Alive Father Alive Mother Alive htn, anxiety Sister 1 Alive Sister 2 Alive Social History Tobacco Use Types Packs/Day Years Used Date Smoking Tobacco: Every Day Cigarettes Smokeless Tobacco: Never Tobacco Cessation:Ready to Q uit: Not Asked; Counseling Given: Not Answered Alcohol Use Standard Drinks/Week Comments Not Asked 0 (1 standard drink = 0.6 oz pur e alcohol) Housing Instability Answer Date Recorde d Are you worried that in the next 2 months you may not have stable housing? No 05/14/2024 Food Access & Nutrition Answer Date Rec orded Do you have access to a vari ety of food including fruits and vegetables? Yes 05/14/2024 Health Literacy Answer Date Recorded How often do you need to hav e someone help you when you read instructions, pamphlets, or other written material from your doctor or pharmacy? Often 05/14/2024 Caregiver: How often do you need to have someone help you when you read instructions, pamphlets, or other written material from your doctor or pharmacy? Not on file 05/14/2024 Financial Risk Answer Date Recorded How hard is it for you to pa y for the very basics like food, housing, medical care, and air conditioning / heating? Somewhat hard 05/14/2024 Transportation Answer Date Recorded Has the lack of transportati on kept you from meetings, work, or from getting things needed for daily living? Yes Has the lack of transportati on kept you from medical appointments or from getting medications? Yes 05/14/2024 Social Isolation Answer Date Recorded How often do you feel lonely or isolated from th ose around you? Often 05/14/2024 Food Risk Answer Date Recorded Within the past 12 months we worried whether our food would run out before we got money to buy more. Never true 05/14/2024 Within the past 12 months th e food we bought just didn't last and we didn't have money to get more. Never true 05/14/2024 Dependent Care Answer Date Recorded Do you need help finding or paying for care for your loved ones. For example, early childhood worker or elderly care for an older adult? No 05/14/2024 Education Answer Date Recorded Do you think completing more education or training, like finishing a GED, going to college, or learning a trade, would be helpful for you? No 05/14/2024 Employment and Income Answer Date Recor ded During the last four weeks, have you been actively looking for work? Yes 05/14/2024 Living Situation Answer Date Recorded What is your living situation? 0 05/14/2024 Sex and Gender Information Value Date Recorded Sex Assigned at Not on file Legal Sex Male 12:24 AM EST Gender Identity Not on file Sexual Orientation Not on file Obstetrics History Last Filed Vital Signs Vital Sign Reading Time Taken Comments Blood Pressure 114/68 05/14/2024 4:18 PM EDT Pulse 81 05/14/2024 4:18 PM EDT Temperature 36.8 C (98.2 F) 05/14/2024 4:18 PM EDT Respiratory Rate 14 05/14/2024 4:18 PM EDT Oxygen Saturation 97% 05/14/2024 4:18 PM EDT Inhaled Oxygen Concentration - - Weight 80.7 kg (178 lb) 05/14/2024 4:18 PM EDT Height 175.3 cm (5' 9 ) 05/14/2024 4:18 PM EDT Body Mass Index 26.29 05/14/2024 4:18 PM EDT Plan of Treatment Health Maintenance Due Date Last Done Comments Hepatitis B Vaccines (1 of 3 - 19+ 3-dose series) 11/29/2011 Pneumococcal Vaccine: Pediatrics (0 to 5 Years) and At-Risk Patients (6 to 49 Years) (1 of 2 - PCV) 11/29/2011 COVID-19 Vaccine (2023-2 5 season) 2023 Influenza Vaccine (#1) 2024 , 03/22/2022 Social Influencers of Health Screening 05/14/2025 05/14/2024 DTaP,Tdap,and Td Vaccines (3 - Td or Tdap) 06/15/2027 06/14/2017, 08/26/2015 Cholesterol Screening (Lipid Panel) 05/15/2029 05/15/2024, 09/13/2021 HIV Screening Completed 08/26/2015 Hepatitis C Screening Completed 08/26/2015 Depression Screening Completed 05/14/2024 HIB Vaccines Aged Out No longer eligi ble based on patient's age to complete this topic HPV Vaccines Aged Out No longer eligi ble based on patient's age to complete this topic Hepatitis A Vaccines Aged Out No long er eligible based on patient's age to complete this topic IPV Vaccines Aged Out No longer eligi ble based on patient's age to complete this topic MMR Vaccines Aged Out No longer eligi ble based on patient's age to complete this topic Meningococcal ACWY Vaccine Aged Out N o longer eligible based on patient's age to complete this topic Meningococcal B Vaccine Aged Out No l onger eligible based on patient's age to complete this topic RSV Immunization Patients Under 20 months Aged Out No longer eligible b ased on patient's age to complete this topic Varicella Vaccines Aged Out No longer eligible based on patient's age to complete this topic Procedures Procedure Name Priority Date/Time Associated Diagnosis Comments LIPID PANEL WITH REFLEX TO DIRECT LDL Routine 05/15/2024 12:58 PM EDT Screening, lipid HEPATITIS C SCREENING Routine 08/26/2015 HIV SCREENING Routine 08/26/2015 from Last 3 Months or Most Recently Relevant to Health Maintenance Results * (ABNORMAL) Lipid panel with reflex to direct LDL (05/15/2024 12:58 PM EDT) Cholesterol 111 0 - 200 mg/dL LAB CHEMISTRY METHOD 05/15/2024 5:22 PM EDT [facility] Triglycerides 116 0 - 150 mg/dL LAB CHEMISTRY METHOD 05/15/2024 5:22 PM EDT [facility] HDL 32(L) >=40 mg/dL LAB CHEMISTRY METHOD 05/15/2024 5:22 PM T [facility] LDL Calculated 56 0 - 100 mg/dL LAB CHEMISTRY METHOD 05/15/2024 5:22 PM EDT [facility] VLDL Cholesterol Zackary 23.2 mg/dL LAB CHEMISTRY METHOD 05/15/2024 5:22 PM [facility] Non HDL Chol. (LDL+VLDL) 79 <145 mg/dL LAB CHEMISTRY METHOD 05/15/2024 5:22 PM EDT [facility] Chol/HDL Ratio 3.5 0.0 - 4.4 LAB CHEMISTRY METHOD 05/15/2024 5:22 PM EDT [facility] Blood Venous blood specimen / Unknown Venipuncture / Unknown 05/15/2024 12:58 PM EDT 05/15/2024 12:58 PM EDT Jorge Richards MD LAB BLOOD ORDERABLES Final Resu lt [facility] [address] [place] [address], * HIV Screening (08/26/2015) HIV Screening ABSTRACTED Historical Provider HEALTH MAINTENANCE Final Result * Hepatitis C Screening (08/26/2015) Hepatitis C Screening ABSTRACTED Historical Provider HEALTH MAINTENANCE Final Result from Last 3 Months or Most Recently Relevant to Health Maintenance Insurance [address] [address] [address] [employer] Care Teams Sign Language Translator Relationship Specialty Start Date End Date Jorge Richards MD [address] [place] [id number] PCP - General 03/15/22
--- OUTSIDE RECORDS SUMMARY | 2024-09-03 16:44 | XMS_ITS ---
Author Name [facility] Organization Unknown Care Team Organization Name Specialty Phone Email Start Date End Da te [facility] SALINAS CAST Primary Care 10/20/2022 4 [facility] ALICIA MCCLELLAN Primary Care 04/20/2022 10/02/19 24 [facility] Lashon Louis Primary Care 12/21/2021 10/02/19 24
[2024-09-03 17:42] VITALS: BP 106/71; PULSE 68; RESP 18; TEMP 36.8; O2SAT 97
[2024-09-03 17:59] VITALS: BP 106/71; PULSE 68; RESP 18; TEMP 36.8; O2SAT 97
== END 2024-09-03 18:00 | disposition home or self-care (01) ==
PROVIDERS: Emergency Provider Emergency Medicine; PCP Internal Medicine
DX: L30.9 Dermatitis, unspecified (principal); R21 Rash and other nonspecific skin eruption
CPT/HCPCS: 99283